=== PATIENT | male | born 1950 | race Caucasian/White ===

== ENCOUNTER 2021-01-11 15:48 | Inpatient (IN) ==
[2021-01-11] MEDS ORDERED: dexAMETHasone**PF** 10 MG/ML VIAL IV ONE (16:20)
--- NOTE | 2021-01-11 16:27 | Emergency Department Note ---
Impression & Plan COVID-19, Syncope and collapse, CHI (closed head injury), Weakness, Hypoxia ED Provider Note INFORMANT: Patient ED PROVIDER(S): Nolan Timmons MD CHIEF COMPLAINT: Syncope, Covid PLAN: Disposition: Admitted Condition: Guarded Outpatient prescription management: none Referral: None MEDICAL DECISION MAKING: Patient presented to emergency room because of syncope and was diagnosed as an outpatient with Covid. His Covid results were not immediately available. Test was repeated and was positive. The patient's chest x-ray was concerning for Covid pneumonia. Patient was given IV Decadron. He was requiring supplemental oxygen. His ECG was normal. His CBC and chemistry panel was unremarkable. The patient was hydrated. He underwent CT imaging of the head and chest and these d id not reveal any acute process other than the viral type pneumonia pattern. Under the circumstances patient will require further management in the hospital. [facility] Patient was evaluated in the ER and admitted. Triage Nursing notes reviewed and agree them. Vital Signs: reviewed and remarkable for hypoxia Differential diagnosis: Covid 19, Infection, dehydration, metabolic abnormality, hypo/hyperglycemia, electrolyte disturbance, anemia, hypoxia, cardiac sources, intracerebral event, toxicologic, neurologic, as well as other pathologies. Diagnostics interpreted by me: ECG: Rate: 73 Rhythm:Normal sinus Pyrites:Normal QRS:Normal ST segements:No elevation or depression Other:No PACs or PVCs Cardiac Monitoring: Cardiac monitoring ordered by me: The patient was placed on continuous cardiac monitoring and observed. It revealed a normal sinus rhythm at 87 beats per minute without ectopy or evidence of dysrhythmia. Imaging studies: Chest x-ray reveals patchy airspace opacities bilaterally. CT PE study negative for pulmonary malaise. Viral type pneumonia pattern present. Head CT: A noncontrast CT scan of the head was performed and was negative for tumor, fracture, intracranial hemorrhage, or other acute pathology. Consultation(s): Reginaldo nicole HPI: The patient is a 70 year old male who presents to the Emergency Room with complaints of weakness. This started over a week ago and is persisting. The patient also notes the following associated symptoms, cough, fatigue, poor appetite, syncope, fevers and chills. The patient has found no relieving factors. Current pain is rated as 3/10. Patient states he was diagnosed with Covid after having a cough develop the first week of the month. He was diagnosed 3 days ago at the [facility]. He has been too weak to get up and eat and drink well. He had a syncopal episode today. He struck his left side of his head and face on the ground. No lacerations. EMS was summoned. The patient walked to EMS and had a second syncopal episode. Upon arrival to [facility] ER he was found to be hypoxic. Pt denies diaphoresis, visual changes, neck pain, chest pain, nausea, vomiting, abdominal pain, back pain, melena, hematochezia, urinary symptoms, numbness, lymphadenopathy, rash, or other complaints. ROS: See above HPI for pertinent positives & negatives. A total of 10 systems reviewed and were otherwise negative. PAST MEDICAL HISTORY:See Below , CAD, hypertension PAST SURGICAL HISTORY:See Below, CABG FAMILY HISTORY:See Below SOCIAL HISTORY:See Below, lives with family HOME MEDICATIONS:See Below ALLERGIES:See Below VITALS:See Below PHYSICAL EXAMINATION: GENERAL: Awake, tired-appearing, in no distress HENT: Normocephalic, small contusion noted on the left side of the head. No lacerations. Oropharynx unremarkable. EYES: Normal conjunctiva. Sclera non-icteric. NECK: Inspection normal. Non-tender. Supple. No nuchal rigidity. FROM. No masses. RESPIRATORY: Clear to auscultation. No wheezes. No rales. Normal respiratory effort. CARDIAC: Normal rate. Normal rhythm. No murmurs. No rubs. Extremities warm and well perfused. Pulses equal. No JVD. GI: Soft, non-distended. No tenderness to palpation. No rebound or guarding. No masses. RECTAL: Deferred. MUSCULOSKELETAL: Atraumatic. Chest examination reveals no tenderness. The back is symmetrical on inspection without obvious abnormality. There is no CVA tenderness to palpation. No joint edema. LOWER EXTREMITIES: Calves are equal size bilaterally and non-tender. No edema. No discoloration. NEURO: Normal sensorium. No sensory or motor deficits noted. SKIN: No rash or jaundice noted. ED COURSE: [Critical Care:] I have personally spent greater than 40 minutes of critical care time in the di rect management of this patient. This includes bedside care, interpretation of diagnostic studies, and testing, discussion with consultants, patient, and other required patient management activities. These minutes are in excess of all separately billable procedures. Nolan Timmons MD Past Med/Surg History Social History (Updated 01/11/21 @ 19:25 by Brenda Gifford MD) Smoking Status: Former smoker Smoking End Date: 10 years ago; Hx Alcohol Use: Yes Hx Substance Use: No Preferred Language: German Communication Ability: Effective Multiple Pressure Riveter Operator Required: No Beliefs That Will Affect Care: None Current Living Situation: Family Current Living Situation Comment: Lives with and son Feels Safe at Home: Yes Assistive Devices: Glasses Assistive Devices Comment: Dentures at home. States he does not wear them very much. Allergies Allergies Allergy/AdvReac Type Severity Reaction Status Date / Time Penicillins Allergy Severe Rash Unverified 01/11/21 16:39 Home Meds Home Medications Medication Instructions Recorded Confirmed amlodipine 10 mg PO QAM 01/11/21 01/11/21 aspirin 81 mg PO DAILY 01/11/21 01/11/21 atorvastatin 80 mg PO QPM 01/11/21 01/11/21 buspirone 10 mg PO BID 01/11/21 01/11/21 fenofibrate 160 mg PO QAM 01/11/21 01/11/21 losartan 25 mg PO QAM 01/11/21 01/11/21 metoprolol tartrate 50 mg PO BID 01/11/21 01/11/21 sertraline 25 mg PO QPM 01/11/21 01/11/21 Results & Data (ED) Vital Signs Vital Signs - 24 hr 01/11/21 15:59 01/11/21 16:11 01/11/21 16:30 Temperature 36.9 C Temperature Source Oral Pulse Rate 73 76 80 Pulse Rate from SpO2 Sensor 74 74 Respiratory Rate 16 20 20 Respiratory Depth Normal Blood Pressure 126/72 126/72 Blood Pressure Mean 90 90 Blood Pressure Position Sitting Pulse Oximetry 88 L 96 Oxygen Delivery Method Room Air Nasal Cannula Oxygen Flow Rate Sepsis Recent Fever Within 48 Hours No Sepsis New/Unexplained Change in Mental Status No Sepsis Action Taken by Nursing No Action Required Oxygen Flow Rate - Titration 3 Pulse Oximetry Post Tiitration 96 01/11/21 16:34 01/11/21 16:35 01/11/21 16:39 Temperature Temperature Source Pulse Rate 75 80 77 Pulse Rate from SpO2 Sensor 77 80 Respiratory Rate 16 24 18 Respiratory Depth Blood Pressure 126/81 Blood Pressure Mean 96 Blood Pressure Position Pulse Oximetry 96 95 97 Oxygen Delivery Method Nasal Cannula Oxygen Flow Rate 3 Sepsis Recent Fever Within 48 Hours Sepsis New/Unexplained Change in Mental Status Sepsis Action Taken by Nursing Oxygen Flow Rate - Titration Pulse Oximetry Post Tiitration 01/11/21 17:00 01/11/21 17:01 01/11/21 17:30 Temperature Temperature Source Pulse Rate 72 80 73 Pulse Rate from SpO2 Sensor 73 80 73 Respiratory Rate 18 17 14 Respiratory Depth Blood Pressure 118/71 Blood Pressure Mean 86 Blood Pressure Position Pulse Oximetry 95 95 94 Oxygen Delivery Method Oxygen Flow Rate Sepsis Recent Fever Within 48 Hours Sepsis New/Unexplained Change in Mental Status Sepsis Action Taken by Nursing Oxygen Flow Rate - Titration Pulse Oximetry Post Tiitration 01/11/21 18:08 01/11/21 18:30 Temperature Temperature Source Pulse Rate 75 Pulse Rate from SpO2 Sensor 75 75 Respiratory Rate 21 17 Respiratory Depth Blood Pressure 116/66 Blood Pressure Mean 82 Blood Pressure Position Pulse Oximetry 96 94 Oxygen Delivery Method Oxygen Flow Rate Sepsis Recent Fever Within 48 Hours Sepsis New/Unexplained Change in Mental Status Sepsis Action Taken by Nursing Oxygen Flow Rate - Titration Pulse Oximetry Post Tiitration Laboratory Data Result diagrams: 01/11/21 16:05 01/11/21 16:05 Lab Results 01/11/21 01/11/21 01/11/21 Range/Units 16:05 16:05 16:05 WBC 5.35 (4.8-10.8) K/uL RBC 4.56 L (4.7-6.1) M/uL Hgb 14.8 (14.0-18.0) g/dL Hct 40.8 L (42-52) % MCV 89.5 (80-100) fL MCH 32.5 (25-34) pg MCHC 36.3 H (32-36) g/dL RDW Std Deviation 41.6 (36.4-46.3) fL RDW Coeff of Bhargav 12.8 (11.5-14.5) % Plt Count 221 (130-400) K/uL MPV 9.8 (7.4-10.4) fL Immature Gran % (Auto) 0.2 % Neut % (Auto) 68.4 % Lymph % (Auto) 21.3 % Robertson % (Auto) 9.7 % Eos % (Auto) 0.2 % Baso % (Auto) 0.2 % Neut # (Auto) 3.66 (1.4-6.5) K/uL Lymph # (Auto) 1.14 L (1.2-3.4) K/uL Robertson # (Auto) 0.52 (0.11-0.59) K/uL Eos # (Auto) 0.01 (0-0.5) K/uL Baso # (Auto) 0.01 (0-0.2) K/uL Immature Gran # (Auto) 0.01 (0.00-0.02) K/uL D-Dimer 990 H* (0-500) ug/L FEU Sodium 136 (136-145) mmol/L Potassium 3.7 (3.5-5.1) mmol/L Chloride 106 (98-107) mmol/L Carbon Dioxide 23 (21-32) mmol/L Anion Gap 7.0 (3-11) BUN 34 H (7-18) mg/dl Creatinine 1.49 H (0.6-1.4) mg/dl Est Cr Clr Drug Dosing 51.3 ml/min Est GFR ( Amer) 53.6 Est GFR (Non-Af Amer) 46.2 BUN/Creatinine Ratio 22.6 H (10-20) Glucose 124 H (70-99) mg/dl Calcium 8.5 (8.5-10.1) mg/dl Magnesium 2.1 (1.8-2.4) mg/dl Total Bilirubin 0.5 (0.2-1) mg/dl AST 68 H (15-37) U/L ALT 68 (12-78) U/L Alkaline Phosphatase 56 (45-117) U/L Troponin I < 0.015 (0-0.045) ng/ml C-Reactive Protein 1.73 H (0-0.29) mg/dl Total Protein 6.6 (6.4-8.2) gm/dl Albumin 2.9 L (3.4-5.0) gm/dl Globulin 3.7 (2.5-4.0) gm/dl Albumin/Globulin Ratio 0.8 L (0.9-2) Procalcitonin (0-0.5) ng/ml TSH 0.347 (0.300-4.500) uIu/ml COVID-19 Eval Order SARS-CoV-2 (PCR) (Negative) Influenza Type A (PCR) (Neg) Influenza Type B (PCR) (Neg) RSV (RT-PCR) (Neg) 01/11/21 01/11/21 01/11/21 Range/Units 16:05 16:35 16:35 WBC (4.8-10.8) K/uL RBC (4.7-6.1) M/uL Hgb (14.0-18.0) g/dL Hct (42-52) % MCV (80-100) fL MCH (25-34) pg MCHC (32-36) g/dL RDW Std Deviation (36.4-46.3) fL RDW Coeff of Bhargav (11.5-14.5) % Plt Count (130-400) K/uL MPV (7.4-10.4) fL Immature Gran % (Auto) % Neut % (Auto) % Lymph % (Auto) % Robertson % (Auto) % Eos % (Auto) % Baso % (Auto) % Neut # (Auto) (1.4-6.5) K/uL Lymph # (Auto) (1.2-3.4) K/uL Robertson # (Auto) (0.11-0.59) K/uL Eos # (Auto) (0-0.5) K/uL Baso # (Auto) (0-0.2) K/uL Immature Gran # (Auto) (0.00-0.02) K/uL D-Dimer (0-500) ug/L FEU Sodium (136-145) mmol/L Potassium (3.5-5.1) mmol/L Chloride (98-107) mmol/L Carbon Dioxide (21-32) mmol/L Anion Gap (3-11) BUN (7-18) mg/dl Creatinine (0.6-1.4) mg/dl Est Cr Clr Drug Dosing ml/min Est GFR ( Amer) Est GFR (Non-Af Amer) BUN/Creatinine Ratio (10-20) Glucose (70-99) mg/dl Calcium (8.5-10.1) mg/dl Magnesium (1.8-2.4) mg/dl Total Bilirubin (0.2-1) mg/dl AST (15-37) U/L ALT (12-78) U/L Alkaline Phosphatase (45-117) U/L Troponin I (0-0.045) ng/ml C-Reactive Protein (0-0.29) mg/dl Total Protein (6.4-8.2) gm/dl Albumin (3.4-5.0) gm/dl Globulin (2.5-4.0) gm/dl Albumin/Globulin Ratio (0.9-2) Procalcitonin < 0.05 (0-0.5) ng/ml TSH (0.300-4.500) uIu/ml COVID-19 Eval Order [facility]FluRsv at [facility] SARS-CoV-2 (PCR) POSITIVE A* (Negative) Influenza Type A (PCR) Negative (Neg) Influenza Type B (PCR) Negative (Neg) RSV (RT-PCR) Negative (Neg) Administered Medications Atorvastatin Calcium (Atorvastatin 40 Mg Tab) 80 mg PO QPM QUINTIN Stop: 02/10/21 20:59 Last Admin: 01/11/21 21:58 Dose: 80 mg Documented by: [id number] Buspirone HCl (Buspirone 5 Mg Tab) 10 mg PO BID QUINTIN Stop: 02/10/21 20:59 Last Admin: 01/11/21 21:58 Dose: 10 mg Documented by: [id number] Heparin Sodium (Porcine) (Heparin Sod 5,000 Unit/0.5 Ml Vial) 5,000 units SQ Q8 QUINTIN Stop: 02/10/21 21:59 Last Admin: 01/11/21 22:04 Dose: 5,000 units Documented by: [id number] Metoprolol Tartrate (Metoprolol Tartrate 50 Mg Tab) 50 mg PO BID QUINTIN Stop: 02/10/21 20:59 Last Admin: 01/11/21 21:59 Dose: 50 mg Documented by: [id number] Sertraline HCl (Sertraline Hcl 50 Mg Tablet) 25 mg PO QPM QUINTIN Stop: 02/10/21 20:59 Last Admin: 01/11/21 21:57 Dose: 25 mg Documented by: [id number] Discontinued Medications Dexamethasone Sodium Phosphate (DexamethasonePf 10 Mg/Ml Vial) 6 mg IV NOW ONE Stop: 01/11/21 16:21 Last Admin: 01/11/21 16:40 Dose: 6 mg Documented by: [id number] Sodium Chloride (Nss) 500 mls @ 999 mls/hr IV .Q31M QUINTIN Stop: 01/11/21 17:00 Last Infusion: 01/11/21 17:27 Dose: 0 mls/hr Documented by: [id number] Admin: 01/11/21 16:26 Dose: 999 mls/hr Documented by: [id number] Sodium Chloride (Nss 1000ml) 1,000 mls @ 125 mls/hr IV .Q8H QUINTIN Stop: 01/12/21 00:29 Last Infusion: 01/11/21 23:33 Dose: 0 mls/hr Documented by: [id number] Admin: 01/11/21 16:40 Dose: 125 mls/hr Documented by: [id number] Remdesivir 200 mg/ Sodium (Chloride) 250 mls @ 125 mls/hr IV NOW STA; Protocol Stop: 01/11/21 23:00 Last Admin: 01/11/21 21:59 Dose: 125 mls/hr Documented by: [id number] Ioversol (Optiray 320 150ml) 113 ml IV ONCE ONE Stop: 01/11/21 18:01 Last Admin: 01/11/21 18:00 Dose: 113 ml Documented by: [id number] Ioversol (Optiray 350 500ml) 113 ml IV ONCE ONE Stop: 01/11/21 18:05 Last Admin: 01/11/21 18:04 Dose: 113 ml Documented by: [id number] Sodium Chloride (Sodium Chloride 0.9% 10ml Flush) 30 ml IV Q24H [facility] Stop: 01/11/21 23:01 Last Admin: 01/12/21 00:20 Dose: 30 ml Documented by: [id number] Imaging Data Radiologist's Impression: Chest X-Ray 01/11/21 16:20 XR chest 1V portable HISTORY: 70 years-old Male weakness +covid acute weakness. COVID Positive. COMPARISON: None TECHNIQUE: Portable AP view of the chest FINDINGS: Cardiac silhouette is enlarged. Prior median sternotomy and CABG. Pulmonary vas cular congestion. Bilateral reticular opacities with hazy ill-defined peripheral predominant airspace densities. No pneumothorax or pleural effusion. Mild right hemidiaphragmatic elevation. Degenerative changes of the shoulders and spine. IMPRESSION: 1. Cardiomegaly with pulmonary vascular congestion. 2. Hazy bilateral pulmonary opacities suggestive of viral pneumonia. ACT 112: Negative or not required by law. The above report was generated using voice recognition software. It may contain grammatical, syntax or spelling errors. Electronically signed by: Chris Garcia M.D. 01/11/2021 5:[address] 01/11/21 16:20 CT head/brain wo con CLINICAL HISTORY: 70 years-old Male with fall, CHI, +covid. Acute head injury status post fall TECHNIQUE: Multiple axial CT images of the head were obtained without contrast. A dose lowering technique was utilized adhering to the principles of ALARA. COMPARISON: CTA chest of same day FINDINGS: [id number] Analyst localizer images demonstrate pulmonary opacities suspicious for pneumonia. No acute intracranial hemorrhage, midline shift, intracranial mass, hydrocephalus, territorial ischemia or abnormal extra-axial collection. It age- related involutional changes. White matter hypodensities suggestive of chronic microvascular ischemic disease. Cerebral vascular calcifications. The calvarium is intact. Mild mucosal thickening of the ethmoid air cells. Unremarkable soft tissues and orbits. IMPRESSION: No acute intracranial abnormality. ACT 112: Negative or not required by law. The above report was generated using voice recognition software. It may contain grammatical, syntax or spelling errors. Electronically signed by: Chris Garcia M.D. 01/11/2021 6:10 PM Chest CTA 01/11/21 16:22 CT angio chest PE protocol CT DOSE: 1431.41 mGy.cm HISTORY: 70 years-old Male with SOB, hypoxia, +covid. Acute shortness of breath and hypoxia. Acute chest trauma status post fall TECHNIQUE: Multiple CTA images of the chest were obtained after the intravenous administration of 113 ml Optiray. Coronal and sagittal MIPS were obtained from the axial data set and were submitted for review. All measurements were obtained according to NASCET criteria. A dose lowering technique was utilized adhering to the principles of ALARA. COMPARISON: Chest radiograph of same day FINDINGS: CTA: Heart is upper limits of normal in size. Prior median sternotomy and CABG with extensive [place] coronary artery calcifications. Mild saccular outpouching of the thoracic aortic isthmus measuring 11 mm suggestive of a ductus diverticulum. No dissection. Unremarkable pulmonary artery. No pulmonary emboli. CT CHEST: 12 mm hypodense left thyroid nodule. Mildly enlarged mediastinal and hilar lymph nodes measure up to 10-11 mm. No pneumothorax. Moderate emphysema. Subpleural multilobar distribution of groundglass and linear consolidative opacities. Bronchial wall thickening suggestive of bronchitis. No overt pulmonary edema or suspicious pulmonary nodule. Central airways are patent. No pneumoperitoneum. Hepatic steatosis. Mild wall thickening of the distal esophagus. Unremarkable soft tissues. There is no acute fracture. IMPRESSION: 1. No pulmonary emboli. 2. Peripheral predominate groundglass and consolidative opacities within all lobes bilaterally compatible with viral pneumonia. 3. Mild likely reactive mediastinal and hilar adenopathy. 4. No pleural effusion. 5. Emphysema. 6. Hepatic steatosis. ACT 112: Negative or not required by law. The above report was generated using voice recognition software. It may contain grammatical, syntax or spelling errors. Electronically signed by: Chris Garcia M.D. 01/11/2021 6:21 PM Discharge Plan Visit Data Chief Complaint: Weakness Stated Complaint: WEAKNESS, SYNCOPE, COVID + ED Provider: Nolan Timmons Discharge Problem: COVID-19, Syncope and collapse, CHI (closed head injury), Weakness, Hypoxia Patient Disposition: Admitted As Inpatient Discharge Instructions Interventions: ED Discharge Assessment Last Done: 01/11/21 19:53
[2021-01-11] MEDS ORDERED: SODIUM CHLORIDE 0.9% 500 ML IV SCH (16:30)
[2021-01-11] MEDS ORDERED: SODIUM CHLORIDE 0.9% 1000ML 1,000 ML IV SCH (16:30)
[2021-01-11 16:43] LABS: Basophils # (auto) 0.01 K/uL (0-0.2); Basophils % (auto) 0.2 %; Eosinophils # (auto) 0.01 K/uL (0-0.5); Eosinophils % (auto) 0.2 %; Hematocrit (blood only) 40.8 % (42-52); Hemoglobin 14.8 g/dL (14.0-18.0); Immature Granulocytes # (auto) 0.01 K/uL (0.00-0.02); Immature Granulocytes % (auto) 0.2 %; Lymphocytes # (auto) 1.14 K/uL (1.2-3.4); Lymphocytes % (auto) 21.3 %; Mean Corpuscular Hemoglobin 32.5 pg (25-34); Mean Corpuscular Hgb Conc 36.3 g/dL (32-36); Mean Corpuscular Volume 89.5 fL (80-100); Mean Platelet Volume 9.8 fL (7.4-10.4); Monocytes # (auto) 0.52 K/uL (0.11-0.59); Monocytes % (auto) 9.7 %; Neutrophils # (auto) 3.66 K/uL (1.4-6.5); Neutrophils % (auto) 68.4 %; Platelet Count 221 K/uL (130-400); RDW Coefficient of Variation 12.8 % (11.5-14.5); RDW Standard Deviation 41.6 fL (36.4-46.3); Red Blood Count 4.56 M/uL (4.7-6.1); White Blood Count 5.35 K/uL (4.8-10.8)
[2021-01-11 16:49] LABS: Alanine Aminotransferase 68 U/L (12-78); Albumin Level 2.9 gm/dl (3.4-5.0); Aspartate Aminotransferase 68 U/L (15-37); BUN Creatinine Ratio 22.6 (10-20); Blood Urea Nitrogen 34 mg/dl (7-18); C Reactive Protein 1.73 mg/dl (0-0.29); Calcium 8.5 mg/dl (8.5-10.1); Carbon Dioxide 23 mmol/L (21-32); Chloride 106 mmol/L (98-107); Creatinine Clr Calc Pharmacy 51.3 ml/min; Est GFR (African American) 53.6; Est GFR (Non-African American) 46.2; Glucose 124 mg/dl (70-99); Magnesium 2.1 mg/dl (1.8-2.4); Potassium 3.7 mmol/L (3.5-5.1); Sodium 136 mmol/L (136-145)
[2021-01-11 16:59] LABS: D Dimer 990 ug/L FEU (0-500)
[2021-01-11 17:00] LABS: Albumin Globulin Ratio 0.8 (0.9-2); Alkaline Phosphatase 56 U/L (45-117); Bilirubin,Total 0.5 mg/dl (0.2-1); Globulin 3.7 gm/dl (2.5-4.0); Thyroid Stimulating Hormone 0.347 uIu/ml (0.300-4.500); Total Protein 6.6 gm/dl (6.4-8.2); Troponin I < 0.015 ng/ml (0-0.045)
--- NOTE | 2021-01-11 17:22 | XRay Report ---
XR chest 1V portable HISTORY: 70 years-old Male weakness +covid acute weakness. COVID Positive. COMPARISON: None TECHNIQUE: Portable AP view of the chest FINDINGS: Cardiac silhouette is enlarged. Prior median sternotomy and CABG. Pulmonary vascular congestion. Bila teral reticular opacities with hazy ill-defined peripheral predominant airspace densities. No pneumot horax or pleural effusion. Mild right hemidiaphragmatic elevation. Degenerative changes of the should ers and spine. IMPRESSION: 1. Cardiomegaly with pulmonary vascular congestion. 2. Hazy bilateral pulmonary opacities suggestive of viral pneumonia. ACT 112: Negative or not required by law. The above report was generated using voice recognition software. It may contain grammatical, syntax o r spelling errors. Electronically signed by: Chris Garcia M.D. 01/11/2021 5:21 PM
[2021-01-11 17:26] LABS: Influenza A virus by PCR Negative (Neg); Influenza B virus by PCR Negative (Neg); RSV by PCR Negative (Neg)
[2021-01-11 17:32] LABS: SARS CoV2 RNA(COVID-19) InHosp POSITIVE (Negative)
[2021-01-11] MEDS ORDERED: OPTIRAY 320 150ml IV ONE (18:00)
[2021-01-11] MEDS ORDERED: OPTIRAY 350 500ml IV ONE (18:04)
--- NOTE | 2021-01-11 18:12 | CT Scan Report ---
CT head/brain wo con CLINICAL HISTORY: 70 years-old Male with fall, CHI, +covid. Acute head injury status post fall TECHNIQUE: Multiple axial CT images of the head were obtained without contrast. A dose lowering tech nique was utilized adhering to the principles of ALARA. COMPARISON: CTA chest of same day FINDINGS: Flue Tile Press Operator localizer images demonstrate pulmonary opacities suspicious for pneumonia. No acute intracrania l hemorrhage, midline shift, intracranial mass, hydrocephalus, territorial ischemia or abnormal extra -axial collection. It age-related involutional changes. White matter hypodensities suggestive of doorshaker ana microvascular ischemic disease. Cerebral vascular calcifications. The calvarium is intact. Mild mucosal thickening of the ethmoid air cells. Unremarkable soft tissues and orbits. IMPRESSION: No acute intracranial abnormality. ACT 112: Negative or not required by law. The above report was generated using voice recognition software. It may contain grammatical, syntax o r spelling errors. Electronically signed by: Chris Garcia M.D. 01/11/2021 6:10 PM
--- NOTE | 2021-01-11 18:22 | CT Scan Report ---
CT angio chest PE protocol CT DOSE: 1431.41 mGy.cm HISTORY: 70 years-old Male with SOB, hypoxia, +covid. Acute shortness of breath and hypoxia. Acute chest trauma status post fall TECHNIQUE: Multiple CTA images of the chest were obtained after the intravenous administration of 113 ml Optiray. Coronal and sagittal MIPS were obtained from the axial data set and were submitted for review. All measurements were obtained according to NASCET criteria. A dose lowering technique was u tilized adhering to the principles of ALARA. COMPARISON: Chest radiograph of same day FINDINGS: CTA: Heart is upper limits of normal in size. Prior median sternotomy and CABG with extensive [place] coron trang artery calcifications. Mild saccular outpouching of the thoracic aortic isthmus measuring 11 mm s uggestive of a ductus diverticulum. No dissection. Unremarkable pulmonary artery. No pulmonary emboli . CT CHEST: 12 mm hypodense left thyroid nodule. Mildly enlarged mediastinal and hilar lymph nodes measure up to 10-11 mm. No pneumothorax. Moderate emphysema. Subpleural multilobar distribution of groundglass and linear consolidative opacities. Bronchial wall thickening suggestive of bronchitis. No overt pulmonar y edema or suspicious pulmonary nodule. Central airways are patent. No pneumoperitoneum. Hepatic steatosis. Mild wall thickening of the distal esophagus. Unremarkable so ft tissues. There is no acute fracture. IMPRESSION: 1. No pulmonary emboli. 2. Peripheral predominate groundglass and consolidative opacities within all lobes bilaterally compat ible with viral pneumonia. 3. Mild likely reactive mediastinal and hilar adenopathy. 4. No pleural effusion. 5. Emphysema. 6. Hepatic steatosis. ACT 112: Negative or not required by law. The above report was generated using voice recognition software. It may contain grammatical, syntax o r spelling errors. Electronically signed by: Chris Garcia M.D. 01/11/2021 6:21 PM
--- NOTE | 2021-01-11 18:50 | History & Physical Report ---
Date of Service January 11, 2021 Assessment & Plan (1) COVID-19: (2) Syncope and collapse: (3) Acute respiratory failure with hypoxia: Acute hypoxic respiratory failure secondary to COVID-19 pneumonia Syncopal episodes is likely related to this. CT PE was negative for PE but has bilateral opacities Continue dexamethasone Remdesivir therapy Monitor LFTs Monitor inflammatory markers Incentive spirometry and flutter Continue oxygen supplementation and will wean as tolerated Fall precautions Hold antihypertensive for now We will continue current NSS and discontinue affect current bag (4) History of coronary artery bypass graft: CAD s/p CABG x2 Continue aspirin, fenofibrate and atorvastatin (5) Hypertension: Controlled for now. Hold amlodipine and losartan for now (6) CKD (chronic kidney disease) stage 3, GFR 30-59 ml/min: Baseline creatinine is 1.5 Creatinine is 1.49 Monitor Avoid nephrotoxins (7) Prediabetes: Hemoglobin A1c was 6.4 in September 2020. Monitor Accu-Cheks with dexamethasone therapy (8) Anxiety: Continue home buspirone and sertraline (9) DVT prophylaxis: Heparin subcu for DVT prophylaxis History of Present Illness 70-year-old man with history of hypertension, CAD status post CABG in 2009, CKD 3, partial bowel resection for obstruction in 2007 who presents to the ER complaining of cough for the past 2 weeks and 2 syncopal episodes today. Patient reported that he started having symptoms around Easter, 2 weeks ago with cough mostly dry. Associated with loss of voice, anorexia and generalized weakness that has been progressive Reported dizziness especially on standing and some mild headache. This has been progressing and patient had Covid test done 3 days ago by PCP which was positive. Patient reported that he likely got the infection from the son. Patient reported that today, he got up to go use the bathroom and fell with brief loss of consciousness hitting his head on the tile floor. He was not able to get up for some time and his son had to come help him up. His oxygen saturation measured at home was 82 to 83% and his [id number] advised him to go to the hospital. He reported that when EMS arrived he tried to walk to the EMS and had another syncopal episode. Other review of system as detailed below. Patient has history of partial bowel resection 2007, CABG in 2009 Other past medical history includes hypertension, CKD 3 for which he follows nephrology Quit smoking 10-11yrs ago. Smoked 2-3ppd for 20ys Quit alcohol same time No illicit drug use On presentation to the hospital, he was noted to be hypoxic on room air. CT PE was negative for PE but does show groundglass opacities bilaterally CT head did not show any acute intracranial abnormalities right hand gas Primary Care Provider: Roque Quinteros MD Allergies Allergy/AdvReac Type Severity Reaction Status Date / Time Penicillins Allergy Severe Rash Unverified 01/11/21 16:39 Home Medications Medication Instructions Recorded Confirmed Type amlodipine 10 mg PO QAM 01/11/21 01/11/21 History aspirin 81 mg PO DAILY 01/11/21 01/11/21 History atorvastatin 80 mg PO QPM 01/11/21 01/11/21 History buspirone 10 mg PO BID 01/11/21 01/11/21 History fenofibrate 160 mg PO QAM 01/11/21 01/11/21 History losartan 25 mg PO QAM 01/11/21 01/11/21 History metoprolol tartrate 50 mg PO BID 01/11/21 01/11/21 History sertraline 25 mg PO QPM 01/11/21 01/11/21 History Past Med/Surg History Social History (Updated 01/11/21 @ 19:25 by Brenda iGfford MD) Smoking Status: Former smoker Feels Safe at Home: Yes Review of Systems Constitutional: + chills, + body aches and + fatigue; no fever Eyes: Blurry vision Ear, Nose, Mouth, Throat: no nasal congestion and no sore throat Respiratory: + cough (mostly dry); no dyspnea and no dyspnea on exertion Cardiovascular: + lightheadedness and + syncope; no chest pain, no dyspnea, no dyspnea on exertion and no edema Gastrointestinal: + diarrhea/loose stools; no abdominal pain, no nausea, no vomiting and no constipation Genitourinary: no dysuria, no difficulty urinating and no urinary frequency Musculoskeletal: + myalgia Integumentary: no problem reported Neurologic: + dizziness; no tremor(s), no headache(s) and no confusion Psychiatric: no depression and no anxiety Physical Exam Constitutional: + well hydrated; no acute distress Eyes: PERRL, conjunctivae normal, anicteric sclerae ENMT: external ear and nose normal, oropharynx normal Respiratory: normal respiratory effort; no respiratory distress mild crackles posteriorly (R>L) On 3 L nasal cannula Cardiovascular: Rate/Rhythm: regular rate and regular rhythm S1-S2 Gastrointestinal (Abdomen): normal bowel sounds, soft, nontender, no hepatosplenomegaly Musculoskeletal: no cyanosis or clubbing, extremities motor strength 5/5 Neurologic: PERRL, EOMI, accommodation nl, no face palsy, no dysarthria No tenderness on palpation left left part of the face where patient fell Psychiatric: A+Ox3, euthymic affect Results & Data Results & Data ([facility]) Vital Signs (Past 12 Hours) Vital Signs Temp Pulse Resp BP Pulse Ox 01/11/21 18:30 75 17 116/66 94 01/11/21 18:08 21 96 01/11/21 17:30 73 14 94 01/11/21 17:01 80 17 95 01/11/21 17:00 72 18 118/71 95 01/11/21 16:39 77 18 97 01/11/21 16:35 80 24 95 01/11/21 16:34 75 16 126/81 96 01/11/21 16:30 80 20 96 01/11/21 16:11 36.9 C 76 20 126/72 88 L 01/11/21 15:59 73 16 126/72 Laboratory Results Laboratory Results - last 24 hr 01/11/21 01/11/21 01/11/21 16:05 16:05 16:05 WBC 5.35 RBC 4.56 L Hgb 14.8 Hct 40.8 L MCV 89.5 MCH 32.5 MCHC 36.3 H RDW Std Deviation 41.6 RDW Coeff of Bhargav 12.8 Plt Count 221 MPV 9.8 Immature Gran % (Auto) 0.2 Neut % (Auto) 68.4 Lymph % (Auto) 21.3 [place] % (Auto) 9.7 Eos % (Auto) 0.2 Baso % (Auto) 0.2 Neut # (Auto) 3.66 Lymph # (Auto) 1.14 L [place] # (Auto) 0.52 Eos # (Auto) 0.01 Baso # (Auto) 0.01 Immature Gran # (Auto) 0.01 D-Dimer 990 H* Sodium 136 Potassium 3.7 Chloride 106 Carbon Dioxide 23 Anion Gap 7.0 BUN 34 H Creatinine 1.49 H Est Cr Clr Drug Dosing 51.3 Est GFR ( Amer) 53.6 Est GFR (Non-Af Amer) 46.2 BUN/Creatinine Ratio 22.6 H Glucose 124 H Calcium 8.5 Magnesium 2.1 Total Bilirubin 0.5 AST 68 H ALT 68 Alkaline Phosphatase 56 Troponin I < 0.015 C-Reactive Protein 1.73 H Total Protein 6.6 Albumin 2.9 L Globulin 3.7 Albumin/Globulin Ratio 0.8 L Procalcitonin TSH 0.347 COVID-19 Eval Order SARS-CoV-2 (PCR) Influenza Type A (PCR) Influenza Type B (PCR) RSV (RT-PCR) 01/11/21 01/11/21 01/11/21 16:05 16:35 16:35 WBC RBC Hgb Hct MCV MCH MCHC RDW Std Deviation RDW Coeff of Bhargav Plt Count MPV Immature Gran % (Auto) Neut % (Auto) Lymph % (Auto) [place] % (Auto) Eos % (Auto) Baso % (Auto) Neut # (Auto) Lymph # (Auto) [place] # (Auto) Eos # (Auto) Baso # (Auto) Immature Gran # (Auto) D-Dimer Sodium Potassium Chloride Carbon Dioxide Anion Gap BUN Creatinine Est Cr Clr Drug Dosing Est GFR ( Amer) Est GFR (Non-Af Amer) BUN/Creatinine Ratio Glucose Calcium Magnesium Total Bilirubin AST ALT Alkaline Phosphatase Troponin I C-Reactive Protein Total Protein Albumin Globulin Albumin/Globulin Ratio Procalcitonin < 0.05 TSH COVID-19 Eval Order CovFluRsv at [facility] SARS-CoV-2 (PCR) POSITIVE A* Influenza Type A (PCR) Negative Influenza Type B (PCR) Negative RSV (RT-PCR) Negative
[2021-01-11] MEDS ORDERED: ACETAMINOPHEN 325 MG TAB PO PRN (20:25)
[2021-01-11] MEDS ORDERED: REMDESIVIR 200 MG in SODIUM CHLORIDE 0.9% 210 ML IV STA (21:01)
[2021-01-11] MEDS: SERTRALINE HCL 50 MG TABLET PO SCH (21:57)
[2021-01-11] MEDS: busPIRone 5 MG TAB PO SCH (21:58)
[2021-01-11] MEDS: ATORVASTATIN 40 MG TAB PO SCH (21:58)
[2021-01-11] MEDS: METOPROLOL TARTRATE 50 MG TAB PO SCH (21:59)
[2021-01-11] MEDS: HEPARIN SOD 5,000 UNIT/0.5 ML VIAL SQ SCH (22:04)
[2021-01-11] MEDS ORDERED: SODIUM CHLORIDE 0.9% 10ML FLUSH IV SCH (23:00)
[2021-01-12] MEDS: FENOFIBRATE: ORDER AWAITING ACTION SCH ×4 (00:39→23:35)
[2021-01-12] MEDS: HEPARIN SOD 5,000 UNIT/0.5 ML VIAL SQ SCH ×3 (05:56→21:15)
[2021-01-12] MEDS: busPIRone 5 MG TAB PO SCH ×2 (08:24→21:13)
[2021-01-12] MEDS: METOPROLOL TARTRATE 50 MG TAB PO SCH ×2 (08:24→21:13)
[2021-01-12] MEDS: ASPIRIN 81 MG ECTAB PO SCH (08:24)
[2021-01-12] MEDS: dexAMETHasone 6 MG in SYRINGE 0 ML IV SCH (08:26)
[2021-01-12 08:30] LABS: Albumin Level 2.7 gm/dl (3.4-5.0); BUN Creatinine Ratio 31.8 (10-20); C Reactive Protein 1.52 mg/dl (0-0.29); Calcium 8.5 mg/dl (8.5-10.1); Creatinine Clr Calc Pharmacy 57.9 ml/min; Est GFR (African American) 62.6; Magnesium 2.3 mg/dl (1.8-2.4); Potassium 3.7 mmol/L (3.5-5.1)
[2021-01-12 08:33] LABS: Albumin Globulin Ratio 0.7 (0.9-2); Bilirubin,Total 0.4 mg/dl (0.2-1); Globulin 3.8 gm/dl (2.5-4.0); Phosphorus 3.5 mg/dl (2.5-4.9); Total Protein 6.5 gm/dl (6.4-8.2)
--- NOTE | 2021-01-12 11:55 | Hospitalist Progress Note ---
Date of Service January 12, 2021 Assessment & Plan (1) COVID-19: (2) Syncope and collapse: (3) Acute respiratory failure with hypoxia: Acute hypoxic respiratory failure secondary to COVID-19 pneumonia Syncopal episodes is likely related to this. CT PE was negative for PE but has bilateral opacities Continue dexamethasone Remdesivir therapy Monitor LFTs Monitor inflammatory markers Incentive spirometry and flutter Continue oxygen supplementation and will wean as tolerated Clinically a lot better today-we will continue current treatment Fall precautions Hold antihypertensive for now We will continue current NSS and discontinue affect current bag Advised to take extreme precaution to avoid falls and ask for help (4) History of coronary artery bypass graft: CAD s/p CABG x2 Continue aspirin, fenofibrate and atorvastatin Denies any cardiac symptoms (5) Hypertension: Controlled for now. Hold amlodipine and losartan for now We will restart blood pressure medications may be from tomorrow (6) CKD (chronic kidney disease) stage 3, GFR 30-59 ml/min: Baseline creatinine is 1.5 Creatinine is 1.49 Avoid nephrotoxins Creatinine has been normalized Was advised to drink more fluid (7) Prediabetes: Hemoglobin A1c was 6.4 in September 2020. Monitor Accu-Cheks with dexamethasone therapy (8) Anxiety: Continue home buspirone and sertraline (9) DVT prophylaxis: Heparin subcu for DVT prophylaxis Admission and Anticipated Discharge Date Admission Date: January 11, 2021 Subjective 01/12/2021 The patient was seen and examined in medical telemetry and Covid room He has minimal cough otherwise breathing has been improving He denies any more dizziness Review of Systems Review of Systems: All systems reviewed and are unremarkable except as noted below Respiratory: + cough and + dyspnea Gastrointestinal: no abdominal pain and no nausea Physical Exam Physical Exam: Lying in bed with minimal shortness of breath at rest Constitutional: + ill appearing and average body habitus Eyes: PERRL, conjunctivae normal, anicteric sclerae ENMT: external ear and nose normal, oropharynx normal Neck: trachea midline, no thyromegaly Respiratory: + respiratory distress (Mild to moderate respiratory distress at rest); no retractions Auscultation: + diminished lung sounds and + crackles (Bibasilar crackles) Cardiovascular: Rate/Rhythm: regular rate and regular rhythm Heart Sounds: no murmur Extremities: no edema Gastrointestinal (Abdomen): Inspection/Auscultation: normal bowel sounds; abdomen not distended Percussion/Palpation: abdomen soft; abdomen nontender Musculoskeletal: No acute arthritis in any joint Neurologic: Alert, awake and oriented x3. Generally weak but no focal sensory and motor deficit appreciated Psychiatric: A+Ox3, euthymic affect Lymphatic: no cervical or axillary lymphadenopathy Results & Data Results & Data ([facility]) Vital Signs (Past 12 Hours) Vital Signs Temp Pulse Pulse Resp BP Pulse Ox 01/12/21 11:17 37.1 C 77 16 114/77 91 01/12/21 10:21 79 01/12/21 07:38 36.9 C 78 20 102/68 91 01/12/21 03:51 36.6 C 77 16 115/67 92 01/12/21 00:00 91 Laboratory Results Short CBC 01/11/21 Range/Units 16:05 WBC 5.35 (4.8-10.8) K/uL Hgb 14.8 (14.0-18.0) g/dL Hct 40.8 L (42-52) % Plt Count 221 (130-400) K/uL BMP 01/11/21 01/12/21 16:05 07:30 Sodium 136 137 Potassium 3.7 3.7 Chloride 106 109 H Carbon Dioxide 23 21 BUN 34 H 42 H Creatinine 1.49 H 1.31 Glucose 124 H 153 H Calcium 8.5 8.5 Cardiac Enzymes 01/11/21 Range/Units 16:05 Troponin I < 0.015 (0-0.045) ng/ml Liver Function 01/11/21 01/12/21 Range/Units 16:05 07:30 Total Bilirubin 0.5 0.4 (0.2-1) mg/dl AST 68 H 58 H (15-37) U/L ALT 68 69 (12-78) U/L Alkaline Phosphatase 56 56 (45-117) U/L Albumin 2.9 L 2.7 L (3.4-5.0) gm/dl Medications Administered Current Inpatient Medications Acetaminophen (Acetaminophen 325 Mg Tab) 650 mg PO Q6H PRN PRN Reason: fever or pain Stop: 02/10/21 20:24 Aspirin (Aspirin 81 Mg Ectab) 81 mg PO DAILY [facility] Stop: 02/11/21 08:59 Last Admin: 01/12/21 08:24 Dose: 81 mg Documented by: Atorvastatin Calcium (Atorvastatin 40 Mg Tab) 80 mg PO QPM [facility] Stop: 02/10/21 20:59 Last Admin: 01/11/21 21:58 Dose: 80 mg Documented by: Buspirone HCl (Buspirone 5 Mg Tab) 10 mg PO BID [facility] Stop: 02/10/21 20:59 Last Admin: 01/12/21 08:24 Dose: 10 mg Documented by: Guaifenesin (Guaifenesin Sugar Free 100 Mg/5 Ml Udc) 100 mg PO Q6H PRN PRN Reason: Cough Stop: 02/10/21 20:24 Heparin Sodium (Porcine) (Heparin Sod 5,000 Unit/0.5 Ml Vial) 5,000 units SQ Q8 [facility] Stop: 02/10/21 21:59 Last Admin: 01/12/21 05:56 Dose: 5,000 units Documented by: Dexamethasone 6 mg/ Syringe 1.5 mls @ 1 mls/min IV DAILY [facility] Stop: 01/22/21 08:59 Last Admin: 01/12/21 08:26 Dose: 1 mls/min Documented by: Remdesivir 100 mg/ Sodium (Chloride) 250 mls @ 250 mls/hr IV Q24H [facility]; Protocol Stop: 01/15/21 20:59 Metoprolol Tartrate (Metoprolol Tartrate 50 Mg Tab) 50 mg PO BID [facility] Stop: 02/10/21 20:59 Last Admin: 01/12/21 08:24 Dose: 50 mg Documented by: Miscellaneous (Fenofibrate: Order Awaiting Action) 1 ea N/A QS [facility] Stop: 02/11/21 00:00 Last Admin: 01/12/21 08:24 Dose: Not Given Documented by: Sertraline HCl (Sertraline Hcl 50 Mg Tablet) 25 mg PO QPM [facility] Stop: 02/10/21 20:59 Last Admin: 01/11/21 21:57 Dose: 25 mg Documented by: Sodium Chloride (Sodium Chloride 0.9% 10ml Flush) 30 ml IV Q24H [facility] Stop: 01/16/21 21:01
--- NOTE | 2021-01-12 13:10 | Electrocardiogram Report ---
Test Reason : Blood Pressure : / mmHG Vent. Rate : 073 BPM Atrial Rate : 073 BPM P-R Int : 200 ms QRS Dur : 088 ms QT Int : 408 ms P-R-T Axes : 068 053 077 degrees QTc Int : 449 ms Poor data quality, interpretation may be adversely affected Normal sinus rhythm Normal ECG No previous ECGs available Confirmed by Yong Mcnally ([id number]) on 01/12/2021 1:09:58 PM Referred By: REFERRED SELF Confirmed By:Nick Mcnally
[2021-01-12] MEDS: guaiFENesin SUGAR FREE 100 MG/5 ML UDC PO PRN (16:04)
[2021-01-12 16:15] LABS: Appearance Urine Clear (Clear); Bacteria Urine Automated Negative (Negative); Bilirubin Urine Negative (Negative); Blood Urine Negative (Negative); Color Urine Dark Yellow; Glucose Urine UA Negative (Negative); Ketones Urine Negative (Negative); Leukocyte Esterase Urine Negative (Negative); Nitrite Urine Negative (Negative); Protein Urine 1+ (Negative); Urobilinogen Urine Negative (Negative); pH Urine 5.5 (4.5-7.5)
[2021-01-12] MEDS ORDERED: SODIUM CHLORIDE 0.9% 10ML FLUSH IV SCH (20:00)
[2021-01-12] MEDS: REMDESIVIR 100 MG in SODIUM CHLORIDE 0.9% 230 ML IV SCH (20:15)
[2021-01-12] MEDS: SERTRALINE HCL 50 MG TABLET PO SCH (21:12)
[2021-01-12] MEDS: ATORVASTATIN 40 MG TAB PO SCH (21:13)
[2021-01-12] MEDS: SODIUM CHLORIDE 0.9% 10ML FLUSH IV SCH (21:44)
[2021-01-13] MEDS: HEPARIN SOD 5,000 UNIT/0.5 ML VIAL SQ SCH ×3 (06:09→21:27)
[2021-01-13 07:11] LABS: Creatinine Clr Calc Pharmacy 56.7 ml/min; Est GFR (African American) 60.9; Est GFR (Non-African American) 52.6
[2021-01-13] MEDS: METOPROLOL TARTRATE 50 MG TAB PO SCH ×2 (09:04→21:27)
[2021-01-13] MEDS: dexAMETHasone 6 MG in SYRINGE 0 ML IV SCH (09:04)
[2021-01-13] MEDS: ASPIRIN 81 MG ECTAB PO SCH (09:05)
[2021-01-13] MEDS: FENOFIBRATE: ORDER AWAITING ACTION SCH ×3 (09:05→23:09)
[2021-01-13] MEDS: busPIRone 5 MG TAB PO SCH ×2 (09:05→21:26)
--- NOTE | 2021-01-13 14:18 | Hospitalist Progress Note ---
Date of Service January 13, 2021 Assessment & Plan (1) COVID-19: (2) Syncope and collapse: (3) Acute respiratory failure with hypoxia: Acute hypoxic respiratory failure secondary to COVID-19 pneumonia Syncopal episodes is likely related to this. CT PE was negative for PE but has bilateral opacities Continue dexamethasone & Remdesivir therapy Monitor LFTs-remains stable Monitor inflammatory markers Incentive spirometry and flutter Continue oxygen supplementation and will wean as tolerated Clinically a lot better today-we will continue current treatment Remains stable and will continue current management Fall precautions Hold antihypertensive for now We will continue current NSS and discontinue affect current bag Advised to take extreme precaution to avoid falls and ask for help Has been ambulating in the room with precaution (4) History of coronary artery bypass graft: CAD s/p CABG x2 Continue aspirin, fenofibrate and atorvastatin Denies any cardiac symptoms (5) Hypertension: Controlled for now. Hold amlodipine and losartan for now We will restart blood pressure medications may be from tomorrow (6) CKD (chronic kidney disease) stage 3, GFR 30-59 ml/min: Baseline creatinine is 1.5 Creatinine is 1.49 Avoid nephrotoxins Creatinine has been normalized Was advised to drink more fluid (7) Prediabetes: Hemoglobin A1c was 6.4 in September 2020. Monitor Accu-Cheks with dexamethasone therapy (8) Anxiety: Continue home buspirone and sertraline (9) DVT prophylaxis: Heparin subcu for DVT prophylaxis Admission and Anticipated Discharge Date Admission Date: January 11, 2021 Subjective 01/12/2021 The patient was seen and examined in medical telemetry and Covid room He has minimal cough otherwise breathing has been improving He denies any more dizziness 01/13/2021 The patient was seen and examined in medical telemetry and Covid room He has been feeling better but is still requiring about 7 L of nasal cannula oxygen to maintain saturation Complains today of cough and generalized weakness Review of Systems Review of Systems: All systems reviewed and are unremarkable except as noted below Respiratory: + cough and + dyspnea on exertion Cardiovascular: no chest pain and no palpitations Physical Exam Physical Exam: Lying in bed with minimal shortness of breath at rest Constitutional: + ill appearing and average body habitus Eyes: PERRL, conjunctivae normal, anicteric sclerae ENMT: external ear and nose normal, oropharynx normal Neck: trachea midline, no thyromegaly Respiratory: + respiratory distress (Mild to moderate respiratory distress at rest); no retractions Auscultation: + diminished lung sounds and + crackles (Bibasilar crackles) Cardiovascular: Rate/Rhythm: regular rate and regular rhythm Heart Sounds: no murmur Extremities: no edema Gastrointestinal (Abdomen): Inspection/Auscultation: normal bowel sounds; abdomen not distended Percussion/Palpation: abdomen soft; abdomen nontender Musculoskeletal: No acute arthritis in any joint Neurologic: Alert, awake and oriented x3. No focal sensory and motor deficit appreciated Psychiatric: A+Ox3, euthymic affect Lymphatic: no cervical or axillary lymphadenopathy Results & Data Results & Data ([facility]) Vital Signs (Past 12 Hours) Vital Signs Temp Pulse Pulse Resp BP BP Pulse Ox 01/13/21 12:13 36.5 C 88 18 118/72 91 01/13/21 09:00 79 01/13/21 08:24 37.0 C 90 20 124/76 95 01/13/21 03:46 37 C 80 18 118/73 98 Laboratory Results [facility] [place] 01/13/21 05:47 Creatinine 1.34 Liver Function 01/13/21 Range/Units 05:47 AST 42 H (15-37) U/L ALT 64 (12-78) U/L Urine 01/12/21 Range/Units 15:57 Urine Color Dark Yellow Urine Appearance Clear (Clear) Urine pH 5.5 (4.5-7.5) Ur Specific [place] 1.040 H (1.000-1.030) Urine Protein 1+ H (Negative) Urine Glucose (UA) Negative (Negative) Medications Administered Current Inpatient Medications Acetaminophen (Acetaminophen 325 Mg Tab) 650 mg PO Q6H PRN PRN Reason: fever or pain Stop: 02/10/21 20:24 Aspirin (Aspirin 81 Mg Ectab) 81 mg PO DAILY [facility] Stop: 02/11/21 08:59 Last Admin: 01/13/21 09:05 Dose: 81 mg Documented by: Atorvastatin Calcium (Atorvastatin 40 Mg Tab) 80 mg PO QPM [facility] Stop: 02/10/21 20:59 Last Admin: 01/12/21 21:13 Dose: 80 mg Documented by: Buspirone HCl (Buspirone 5 Mg Tab) 10 mg PO BID [facility] Stop: 02/10/21 20:59 Last Admin: 01/13/21 09:05 Dose: 10 mg Documented by: Guaifenesin (Guaifenesin Sugar Free 100 Mg/5 Ml Udc) 100 mg PO Q6H PRN PRN Reason: Cough Stop: 02/10/21 20:24 Last Admin: 01/12/21 16:04 Dose: 100 mg Documented by: Heparin Sodium (Porcine) (Heparin Sod 5,000 Unit/0.5 Ml Vial) 5,000 units SQ Q8 [facility] Stop: 02/10/21 21:59 Last Admin: 01/13/21 06:09 Dose: 5,000 units Documented by: Dexamethasone 6 mg/ Syringe 1.5 mls @ 1 mls/min IV DAILY [facility] Stop: 01/22/21 08:59 Last Admin: 01/13/21 09:04 Dose: 1 mls/min Documented by: Remdesivir 100 mg/ Sodium (Chloride) 250 mls @ 250 mls/hr IV Q24H [facility]; Protocol Stop: 01/15/21 20:59 Last Infusion: 01/12/21 21:44 Dose: Infused Documented by: Metoprolol Tartrate (Metoprolol Tartrate 50 Mg Tab) 50 mg PO BID [facility] Stop: 02/10/21 20:59 Last Admin: 01/13/21 09:04 Dose: 50 mg Documented by: Miscellaneous (Fenofibrate: Order Awaiting Action) 1 ea N/A QS [facility] Stop: 02/11/21 00:00 Last Admin: 01/13/21 09:05 Dose: Not Given Documented by: Sertraline HCl (Sertraline Hcl 50 Mg Tablet) 25 mg PO QPM [facility] Stop: 02/10/21 20:59 Last Admin: 01/12/21 21:12 Dose: 25 mg Documented by: Sodium Chloride (Sodium Chloride 0.9% 10ml Flush) 30 ml IV Q24H [facility] Stop: 01/16/21 21:01 Last Admin: 01/12/21 21:44 Dose: 30 ml Documented by:
[2021-01-13] MEDS: REMDESIVIR 100 MG in SODIUM CHLORIDE 0.9% 230 ML IV SCH (20:11)
[2021-01-13] MEDS: ATORVASTATIN 40 MG TAB PO SCH (21:26)
[2021-01-13] MEDS: SERTRALINE HCL 50 MG TABLET PO SCH (21:27)
[2021-01-13] MEDS: SODIUM CHLORIDE 0.9% 10ML FLUSH IV SCH (21:31)
[2021-01-14] MEDS: HEPARIN SOD 5,000 UNIT/0.5 ML VIAL SQ SCH ×3 (05:35→21:15)
[2021-01-14 08:00] LABS: Creatinine Clr Calc Pharmacy 59.4 ml/min; Est GFR (African American) 66.9; Est GFR (Non-African American) 57.7
[2021-01-14] MEDS: dexAMETHasone 6 MG in SYRINGE 0 ML IV SCH (08:39)
[2021-01-14] MEDS: ASPIRIN 81 MG ECTAB PO SCH (08:40)
[2021-01-14] MEDS: busPIRone 5 MG TAB PO SCH ×2 (08:40→21:11)
[2021-01-14] MEDS: FENOFIBRATE: ORDER AWAITING ACTION SCH (08:40)
[2021-01-14] MEDS: METOPROLOL TARTRATE 50 MG TAB PO SCH ×2 (08:40→21:10)
[2021-01-14 13:18] LABS: Basophils # (auto) 0.01 K/uL (0-0.2); Basophils % (auto) 0.2 %; Eosinophils # (auto) 0.01 K/uL (0-0.5); Eosinophils % (auto) 0.2 %; Hematocrit (blood only) 40.5 % (42-52); Hemoglobin 14.3 g/dL (14.0-18.0); Immature Granulocytes # (auto) 0.01 K/uL (0.00-0.02); Immature Granulocytes % (auto) 0.2 %; Lymphocytes # (auto) 0.75 K/uL (1.2-3.4); Lymphocytes % (auto) 11.8 %; Mean Corpuscular Hemoglobin 31.9 pg (25-34); Mean Corpuscular Hgb Conc 35.3 g/dL (32-36); Mean Corpuscular Volume 90.4 fL (80-100); Mean Platelet Volume 9.5 fL (7.4-10.4); Monocytes % (auto) 7.9 %; Neutrophils # (auto) 5.08 K/uL (1.4-6.5); Neutrophils % (auto) 79.7 %; Platelet Count 271 K/uL (130-400); RDW Standard Deviation 43.1 fL (36.4-46.3); Red Blood Count 4.48 M/uL (4.7-6.1); White Blood Count 6.36 K/uL (4.8-10.8)
[2021-01-14 13:56] LABS: BUN Creatinine Ratio 25.4 (10-20); Calcium 8.2 mg/dl (8.5-10.1); Creatinine Clr Calc Pharmacy 53.8 ml/min; Est GFR (African American) 59.3; Est GFR (Non-African American) 51.2; Magnesium 2.1 mg/dl (1.8-2.4); Potassium 4.1 mmol/L (3.5-5.1)
[2021-01-14 13:58] LABS: C Reactive Protein 1.42 mg/dl (0-0.29); Phosphorus 2.2 mg/dl (2.5-4.9)
--- NOTE | 2021-01-14 13:59 | XRay Report ---
XR chest 1V portable HISTORY: Shortness of breath. Pneumonia COMPARISON: Chest CTA 01/11/2021 FINDINGS: No pneumothorax or no pleural effusions. The heart remains mildly enlarged. There are posts ternotomy changes. Slight improved aeration within the peripheral groundglass airspace opacities cons istent with a multifocal pneumonia. IMPRESSION: Slight improvement in the multifocal pneumonia. ACT 112: Negative or not required by law. Electronically signed by: Bar Sanchez M.D. 01/14/2021 1:57 PM
--- NOTE | 2021-01-14 15:28 | Hospitalist Progress Note ---
Date of Service January 14, 2021 Assessment & Plan (1) COVID-19: (2) Syncope and collapse: (3) Acute respiratory failure with hypoxia: Acute hypoxic respiratory failure secondary to COVID-19 pneumonia Syncopal episodes is likely related to this. CT PE was negative for PE but has bilateral opacities Continue dexamethasone & Remdesivir therapy Monitor LFTs-remains stable Monitor inflammatory markers Incentive spirometry and flutter Still requiring high flow oxygen up to 9 L/min to maintain saturation Clinically better and the chest x-ray is showing some improvement Inflammatory markers like CRP is minimally elevated Remdesivir course will be done after tomorrow's dose Likely discharge home day after tomorrow if oxygen requirements is reasonable Fall precautions Hold antihypertensive for now We will continue current NSS and discontinue affect current bag Advised to take extreme precaution to avoid falls and ask for help Has been ambulating in the room with precaution Will order PT and OT evaluation before discharge (4) History of coronary artery bypass graft: CAD s/p CABG x2 Continue aspirin, fenofibrate and atorvastatin Denies any cardiac symptoms (5) Hypertension: Controlled for now. Hold amlodipine and losartan for now We will start blood pressure medications (6) CKD (chronic kidney disease) stage 3, GFR 30-59 ml/min: Baseline creatinine is 1.5 Creatinine is 1.49 Avoid nephrotoxins Creatinine has been normalized Was advised to drink more fluid (7) Prediabetes: Hemoglobin A1c was 6.4 in September 2020. Monitor Accu-Cheks with dexamethasone therapy (8) Anxiety: Continue home buspirone and sertraline (9) DVT prophylaxis: Heparin subcu for DVT prophylaxis Admission and Anticipated Discharge Date Admission Date: January 11, 2021 Subjective 01/12/2021 The patient was seen and examined in medical telemetry and Covid room He has minimal cough otherwise breathing has been improving He denies any more dizziness 01/13/2021 The patient was seen and examined in medical telemetry and Covid room He has been feeling better but is still requiring about 7 L of nasal cannula oxygen to maintain saturation Complains today of cough and generalized weakness 01/14/2021 The patient was seen and examined in medical telemetry unit and Covid room He has been feeling a little better and is still requiring about 7 to 9 L of nasal cannula oxygen to maintain saturation Denies any significant cough and no shortness of breath at rest No fever and/or chills Review of Systems Review of Systems: All systems reviewed and are unremarkable except as noted below Constitutional: + chills, + body aches and + fatigue; no fever Eyes: Blurry vision Respiratory: + cough and + dyspnea on exertion Musculoskeletal: + myalgia Neurologic: + dizziness; no tremor(s), no headache(s) and no confusion Physical Exam Physical Exam: Lying in bed with minimal shortness of breath at rest Constitutional: + ill appearing and average body habitus Eyes: PERRL, conjunctivae normal, anicteric sclerae ENMT: external ear and nose normal, oropharynx normal Neck: trachea midline, no thyromegaly Respiratory: + respiratory distress (Mild to moderate respiratory distress at rest); no retractions Auscultation: + diminished lung sounds, + crackles (Bibasilar crackles) and + wheezes (Occasional wheezing) Cardiovascular: Rate/Rhythm: regular rate and regular rhythm Heart Sounds: no murmur Extremities: no edema Gastrointestinal (Abdomen): Inspection/Auscultation: normal bowel sounds; abdomen not distended Percussion/Palpation: abdomen soft; abdomen nontender Musculoskeletal: No acute arthritis in any joint Neurologic: Alert, awake and oriented x3. Generally weak without any focal neuro deficit Psychiatric: A+Ox3, euthymic affect Lymphatic: no cervical or axillary lymphadenopathy Results & Data Results & Data ([facility]) Vital Signs (Past 12 Hours) Vital Signs Temp Pulse Pulse Resp BP BP Pulse Ox 01/14/21 14:47 80 01/14/21 08:30 74 01/14/21 07:51 36.8 C 87 149/80 H 90 01/14/21 04:00 37.0 C 76 18 135/76 92 Laboratory Results Short CBC 01/14/21 Range/Units 13:03 WBC 6.36 (4.8-10.8) K/uL Hgb 14.3 (14.0-18.0) g/dL Hct 40.5 L (42-52) % Plt Count 271 (130-400) K/uL BMP 01/14/21 01/14/21 07:10 13:03 Sodium 137 Potassium 4.1 Chloride 107 Carbon Dioxide 25 BUN 35 H Creatinine 1.24 1.37 Glucose 188 H Calcium 8.2 L Liver Function 01/14/21 Range/Units 07:10 AST 47 H (15-37) U/L ALT 59 (12-78) U/L Medications Administered Current Inpatient Medications Acetaminophen (Acetaminophen 325 Mg Tab) 650 mg PO Q6H PRN PRN Reason: fever or pain Stop: 02/10/21 20:24 Aspirin (Aspirin 81 Mg Ectab) 81 mg PO DAILY [facility] Stop: 02/11/21 08:59 Last Admin: 01/14/21 08:40 Dose: 81 mg Documented by: Atorvastatin Calcium (Atorvastatin 40 Mg Tab) 80 mg PO QPM [facility] Stop: 02/10/21 20:59 Last Admin: 01/13/21 21:26 Dose: 80 mg Documented by: Buspirone HCl (Buspirone 5 Mg Tab) 10 mg PO BID [facility] Stop: 02/10/21 20:59 Last Admin: 01/14/21 08:40 Dose: 10 mg Documented by: Fenofibrate (Fenofibrate Nanocrystallized 145 Mg Tablet) 145 mg PO QAM [facility] Stop: 02/13/21 15:59 Guaifenesin (Guaifenesin Sugar Free 100 Mg/5 Ml Udc) 100 mg PO Q6H PRN PRN Reason: Cough Stop: 02/10/21 20:24 Last Admin: 01/12/21 16:04 Dose: 100 mg Documented by: Heparin Sodium (Porcine) (Heparin Sod 5,000 Unit/0.5 Ml Vial) 5,000 units SQ Q8 [facility] Stop: 02/10/21 21:59 Last Admin: 01/14/21 05:35 Dose: 5,000 units Documented by: Dexamethasone 6 mg/ Syringe 1.5 mls @ 1 mls/min IV DAILY [facility] Stop: 01/22/21 08:59 Last Admin: 01/14/21 08:39 Dose: 1 mls/min Documented by: Remdesivir 100 mg/ Sodium (Chloride) 250 mls @ 250 mls/hr IV Q24H [facility]; Protocol Stop: 01/15/21 20:59 Last Infusion: 01/13/21 21:32 Dose: Infused Documented by: Metoprolol Tartrate (Metoprolol Tartrate 50 Mg Tab) 50 mg PO BID [facility] Stop: 02/10/21 20:59 Last Admin: 01/14/21 08:40 Dose: 50 mg Documented by: Sertraline HCl (Sertraline Hcl 50 Mg Tablet) 25 mg PO QPM [facility] Stop: 02/10/21 20:59 Last Admin: 01/13/21 21:27 Dose: 25 mg Documented by: Sodium Chloride (Sodium Chloride 0.9% 10ml Flush) 30 ml IV Q24H [facility] Stop: 01/16/21 21:01 Last Admin: 01/13/21 21:31 Dose: 30 ml Documented by:
[2021-01-14] MEDS ORDERED: amLODIPine BESYLATE 5 MG TAB PO ONE (15:33)
[2021-01-14] MEDS: FENOFIBRATE NANOCRYSTALLIZED 145 MG TABLET PO SCH (16:00)
[2021-01-14] MEDS: REMDESIVIR 100 MG in SODIUM CHLORIDE 0.9% 230 ML IV SCH (20:18)
[2021-01-14] MEDS: ATORVASTATIN 40 MG TAB PO SCH (21:10)
[2021-01-14] MEDS: SERTRALINE HCL 50 MG TABLET PO SCH (21:11)
[2021-01-14] MEDS: SODIUM CHLORIDE 0.9% 10ML FLUSH IV SCH (22:13)
[2021-01-15] MEDS: HEPARIN SOD 5,000 UNIT/0.5 ML VIAL SQ SCH ×3 (06:26→21:22)
[2021-01-15 07:34] LABS: Creatinine Clr Calc Pharmacy 70.3 ml/min; Est GFR (African American) 81.8; Est GFR (Non-African American) 70.6
[2021-01-15] MEDS: dexAMETHasone 6 MG in SYRINGE 0 ML IV SCH (08:41)
[2021-01-15] MEDS: LOSARTAN POTASSIUM 25 MG TAB PO SCH (08:42)
[2021-01-15] MEDS: ASPIRIN 81 MG ECTAB PO SCH (08:42)
[2021-01-15] MEDS: busPIRone 5 MG TAB PO SCH ×2 (08:42→20:07)
[2021-01-15] MEDS: METOPROLOL TARTRATE 50 MG TAB PO SCH ×2 (08:42→20:07)
[2021-01-15] MEDS: amLODIPine BESYLATE 5 MG TAB PO SCH (08:43)
[2021-01-15] MEDS: FENOFIBRATE NANOCRYSTALLIZED 145 MG TABLET PO SCH (08:43)
--- NOTE | 2021-01-15 13:03 | Hospitalist Progress Note ---
Date of Service January 15, 2021 Assessment & Plan (1) COVID-19: (2) Syncope and collapse: (3) Acute respiratory failure with hypoxia: Acute hypoxic respiratory failure secondary to COVID-19 pneumonia Syncopal episodes is likely related to this. CT PE was negative for PE but has bilateral opacities Continue on dexamethasone and remdesivir. Monitor daily LFTs. Encourage incentive spirometer/flutter therapy. Continues to require roughly 9 L of oxygen. We will give 1 dose of IV Lasix 20 mg now to help wean off the oxygen. Work with PT.OT. (4) History of coronary artery bypass graft: CAD s/p CABG x2 Continue aspirin, fenofibrate and atorvastatin. (5) Hypertension: C/W amlodipine and losartan for now (6) CKD (chronic kidney disease) stage 3, GFR 30-59 ml/min: Baseline creatinine is 1.5 Creatinine is 1.49 Avoid nephrotoxins (7) Prediabetes: Hemoglobin A1c was 6.4 in September 2020. Monitor Accu-Cheks with dexamethasone therapy (8) Anxiety: Continue home buspirone and sertraline (9) DVT prophylaxis: Heparin subcu for DVT prophylaxis Admission and Anticipated Discharge Date Admission Date: January 11, 2021 Subjective Currently resting comfortably in the recliner. Denies any shortness of breath but does have a nonproductive cough. Denies any chest pain, abdominal pain, diarrhea or dysuria. Denies any headache or dizziness. His appetite is okay. Review of Systems Review of Systems: All systems reviewed & are unremarkable except as noted in HPI & below Physical Exam Physical Exam: General: A&Ox3 HENT: NCAT, MMM, EOMI Eyes: PERRLA Neck: Supple, normal range of motion CVS: normal rate and rhythm Resp: b/l coarse breath sounds Abdomen: Soft, ND/NT, +BS Extremities: No c/c/e Neuro: face symmetric, strength grossly equal, no focal deficit Skin: warm and dry, no rashes/lesions/errythema MSK: normal ROM, no joint swelling/erythema Results & Data Results & Data ([facility]) Vital Signs (Past 12 Hours) Vital Signs Temp Pulse Pulse Resp BP BP Pulse Ox 01/15/21 12:37 36.6 C 78 20 108/63 94 01/15/21 09:35 72 01/15/21 08:28 36.8 C 71 20 134/75 93 01/15/21 04:17 36.6 C 73 18 101/65 93
[2021-01-15] MEDS ORDERED: FUROSEMIDE 20 MG in SYRINGE 0 ML IV ONE (13:30)
[2021-01-15] MEDS: REMDESIVIR 100 MG in SODIUM CHLORIDE 0.9% 230 ML IV SCH (20:06)
[2021-01-15] MEDS: ATORVASTATIN 40 MG TAB PO SCH (20:07)
[2021-01-15] MEDS: SERTRALINE HCL 50 MG TABLET PO SCH (20:08)
[2021-01-15] MEDS: SODIUM CHLORIDE 0.9% 10ML FLUSH IV SCH (21:22)
[2021-01-16] MEDS: HEPARIN SOD 5,000 UNIT/0.5 ML VIAL SQ SCH ×3 (06:00→20:47)
[2021-01-16] MEDS: busPIRone 5 MG TAB PO SCH ×2 (08:55→20:46)
[2021-01-16] MEDS: METOPROLOL TARTRATE 50 MG TAB PO SCH ×2 (08:55→20:47)
[2021-01-16] MEDS: LOSARTAN POTASSIUM 25 MG TAB PO SCH (08:55)
[2021-01-16] MEDS: ASPIRIN 81 MG ECTAB PO SCH (08:56)
[2021-01-16] MEDS: amLODIPine BESYLATE 5 MG TAB PO SCH (08:56)
[2021-01-16] MEDS: FENOFIBRATE NANOCRYSTALLIZED 145 MG TABLET PO SCH (08:56)
[2021-01-16] MEDS: dexAMETHasone 6 MG in SYRINGE 0 ML IV SCH (08:57)
[2021-01-16 09:59] LABS: BUN Creatinine Ratio 32.2 (10-20); Calcium 8.5 mg/dl (8.5-10.1); Creatinine Clr Calc Pharmacy 67.2 ml/min; Est GFR (African American) 79.1; Est GFR (Non-African American) 68.2; Potassium 3.9 mmol/L (3.5-5.1)
[2021-01-16 10:57] LABS: Basophils # (auto) 0.01 K/uL (0-0.2); Basophils % (auto) 0.1 %; Eosinophils % (auto) 1.1 %; Hematocrit (blood only) 40.3 % (42-52); Hemoglobin 14.4 g/dL (14.0-18.0); Immature Granulocytes # (auto) 0.05 K/uL (0.00-0.02); Immature Granulocytes % (auto) 0.6 %; Lymphocytes % (auto) 16.8 %; Mean Corpuscular Hemoglobin 32.4 pg (25-34); Mean Corpuscular Hgb Conc 35.7 g/dL (32-36); Mean Corpuscular Volume 90.6 fL (80-100); Mean Platelet Volume 9.8 fL (7.4-10.4); Monocytes # (auto) 0.67 K/uL (0.11-0.59); Monocytes % (auto) 7.5 %; Neutrophils # (auto) 6.59 K/uL (1.4-6.5); Neutrophils % (auto) 73.9 %; Platelet Count 341 K/uL (130-400); RDW Coefficient of Variation 13.1 % (11.5-14.5); RDW Standard Deviation 43.6 fL (36.4-46.3); Red Blood Count 4.45 M/uL (4.7-6.1); White Blood Count 8.92 K/uL (4.8-10.8)
[2021-01-16 11:27] LABS: Albumin Globulin Ratio 0.7 (0.9-2); Albumin Level 2.5 gm/dl (3.4-5.0); Bilirubin,Total 0.4 mg/dl (0.2-1); Globulin 3.6 gm/dl (2.5-4.0); Total Protein 6.1 gm/dl (6.4-8.2)
[2021-01-16 11:31] LABS: C Reactive Protein 1.32 mg/dl (0-0.29)
[2021-01-16] MEDS ORDERED: FUROSEMIDE 40 MG in SYRINGE 0 ML IV ONE (13:15)
--- NOTE | 2021-01-16 13:32 | Hospitalist Progress Note ---
Date of Service January 16, 2021 Assessment & Plan (1) COVID-19: (2) Syncope and collapse: (3) Acute respiratory failure with hypoxia: Acute hypoxic respiratory failure secondary to COVID-19 pneumonia Syncopal episodes is likely related to this. CT PE was negative for PE but has bilateral opacities Continue on dexamethasone, completed course of remdesivir. Monitor daily LFTs. Encourage incentive spirometer/flutter therapy. Desponded good to IV Lasix. Give another dose of IV Lasix 20 mg now. Continue to monitor ins and outs along with daily weights. Hopefully should assist with weaning down from the oxygen. Work with PT.OT. (4) History of coronary artery bypass graft: CAD s/p CABG x2 Continue aspirin, fenofibrate and atorvastatin. (5) Hypertension: C/W amlodipine and losartan for now (6) CKD (chronic kidney disease) stage 3, GFR 30-59 ml/min: Baseline creatinine is 1.5 Creatinine is 1.49 Avoid nephrotoxins (7) Prediabetes: Hemoglobin A1c was 6.4 in September 2020. Monitor Accu-Cheks with dexamethasone therapy (8) Anxiety: Continue home buspirone and sertraline (9) DVT prophylaxis: Heparin subcu for DVT prophylaxis Admission and Anticipated Discharge Date Admission Date: January 11, 2021 Subjective Doing okay this morning. He is weaned down to 7 L of nasal cannula. Has any shortness of breath or any significant cough. Rest of the review of system is negative. Hemodynamically patient is doing fine. Review of Systems Review of Systems: All systems reviewed & are unremarkable except as noted in HPI & below Physical Exam Physical Exam: General: A&Ox3 HENT: NCAT, MMM, EOMI Eyes: PERRLA Neck: Supple, normal range of motion CVS: normal rate and rhythm Resp: b/l coarse breath sounds Abdomen: Soft, ND/NT, +BS Extremities: No c/c/e Neuro: face symmetric, strength grossly equal, no focal deficit Skin: warm and dry, no rashes/lesions/errythema MSK: normal ROM, no joint swelling/erythema Results & Data Results & Data ([facility]) Vital Signs (Past 12 Hours) Vital Signs Temp Pulse Resp BP BP Pulse Ox 01/16/21 11:48 36.6 C 75 18 97/60 L 93 01/16/21 06:40 36.6 C 67 18 132/74 96 01/16/21 03:54 36.7 C 67 20 129/77 97
[2021-01-16] MEDS ORDERED: FUROSEMIDE 20 MG in SYRINGE 0 ML IV ONE (13:45)
[2021-01-16] MEDS: ATORVASTATIN 40 MG TAB PO SCH (20:46)
[2021-01-16] MEDS: SERTRALINE HCL 50 MG TABLET PO SCH (20:47)
[2021-01-17] MEDS: HEPARIN SOD 5,000 UNIT/0.5 ML VIAL SQ SCH ×3 (05:51→21:24)
[2021-01-17 07:41] LABS: Calcium 8.8 mg/dl (8.5-10.1); Est GFR (African American) 70.3; Est GFR (Non-African American) 60.7; Potassium 3.9 mmol/L (3.5-5.1)
[2021-01-17] MEDS: SODIUM CHLORIDE 0.9% 10ML FLUSH IV SCH (08:00)
[2021-01-17] MEDS: FENOFIBRATE NANOCRYSTALLIZED 145 MG TABLET PO SCH (08:01)
[2021-01-17] MEDS: amLODIPine BESYLATE 5 MG TAB PO SCH (08:01)
[2021-01-17] MEDS: dexAMETHasone 6 MG in SYRINGE 0 ML IV SCH (08:01)
[2021-01-17] MEDS: LOSARTAN POTASSIUM 25 MG TAB PO SCH (08:01)
[2021-01-17] MEDS: METOPROLOL TARTRATE 50 MG TAB PO SCH ×2 (08:01→21:21)
[2021-01-17] MEDS: busPIRone 5 MG TAB PO SCH ×2 (08:01→21:22)
[2021-01-17] MEDS: ASPIRIN 81 MG ECTAB PO SCH (08:01)
[2021-01-17] MEDS: guaiFENesin SUGAR FREE 100 MG/5 ML UDC PO PRN ×2 (12:02→21:55)
--- NOTE | 2021-01-17 13:13 | Hospitalist Progress Note ---
Date of Service January 17, 2021 Assessment & Plan (1) Pneumonia due to COVID-19 virus: maintains on Decadron and tolerating this. Cont supportive care efforts. (2) Post-tussive syncope: cough has resolved. (3) Acute respiratory failure with hypoxia: Acute hypoxic respiratory failure secondary to COVID-19 pneumonia Continue on dexamethasone, completed course of remdesivir. Encourage incentive spirometer/flutter therapy. Responded well to some intravenous lasix. Cont PT/OT (4) History of coronary artery bypass graft: CAD s/p CABG x2 Continue aspirin, fenofibrate and atorvastatin. (5) Hypertension: well controlled, C/W amlodipine and losartan for now (6) CKD (chronic kidney disease) stage 3, GFR 30-59 ml/min: Baseline creatinine is 1.5 Creatinine is 1.49 Avoid nephrotoxins (7) Prediabetes: Hemoglobin A1c was 6.4 in September 2020. Monitor Accu-Cheks with dexamethasone therapy (8) Anxiety: Continue home buspirone and sertraline (9) DVT prophylaxis: Heparin subcu for DVT prophylaxis Full Code Dispo-to home when able. Dinorah Beard DO [facility] Hospitalist Admission and Anticipated Discharge Date Admission Date: January 11, 2021 Subjective 70 yo M with covid pneumonia admitted with acute respiratory failure. Hypoxia is improving Pulm consulted out of concern for persistent hypoxia. Afebrile Initial symptoms have resolved. Feeling well overall. Review of Systems Review of Systems: All systems reviewed & are unremarkable except as noted in Subjective Physical Exam Physical Exam: CONSTITUTIONAL: WNWD, vitals as above, generally well- appearing EYES: normal conjunctivae, no scleral icterus ENT: external ear and nose normal, MMM RESPIRATORY: clear to auscultation bilaterally, no crackles, rales or wheezes, normal respiratory effort CARDIOVASCULAR: regular rate and rhythm, S1 and 2 heard without murmurs, gallops or rubs, no JVD, no peripheral edema GASTROINTESTINAL: soft, nontender, nondistended, , no guarding MUSCULOSKELETAL: strength 5/5 throughout, head is normocephalic and atraumatic SKIN: warm and dry NEUROLOGIC: CN 2-12 grossly intact, no sensory deficit, normal cognition, normal speech, no tremor PSYCHIATRIC: alert cooperative and oriented to person, place and time. Results & Data Results & Data ([facility]) Vital Signs (Past 12 Hours) Vital Signs Temp Pulse Resp BP Pulse Ox 01/17/21 12:00 36.6 C 74 100/62 92 01/17/21 08:02 36.6 C 75 96/60 L 92 01/17/21 02:18 36.6 C 72 16 109/70 93 Laboratory Results BMP 01/17/21 06:13 Sodium 139 Potassium 3.9 Chloride 104 Carbon Dioxide 31 BUN 39 H Creatinine 1.19 Glucose 154 H Calcium 8.8 Medications Administered Current Inpatient Medications Acetaminophen (Acetaminophen 325 Mg Tab) 650 mg PO Q6H PRN PRN Reason: fever or pain Stop: 02/10/21 20:24 Amlodipine Besylate (Amlodipine Besylate 5 Mg Tab) 10 mg PO QAM [facility] Stop: 02/14/21 08:59 Last Admin: 01/17/21 08:01 Dose: 10 mg Documented by: Aspirin (Aspirin 81 Mg Ectab) 81 mg PO DAILY [facility] Stop: 02/11/21 08:59 Last Admin: 01/17/21 08:01 Dose: 81 mg Documented by: Atorvastatin Calcium (Atorvastatin 40 Mg Tab) 80 mg PO QPM [facility] Stop: 02/10/21 20:59 Last Admin: 01/16/21 20:46 Dose: 80 mg Documented by: Buspirone HCl (Buspirone 5 Mg Tab) 10 mg PO BID [facility] Stop: 02/10/21 20:59 Last Admin: 01/17/21 08:01 Dose: 10 mg Documented by: Fenofibrate (Fenofibrate Nanocrystallized 145 Mg Tablet) 145 mg PO QAM [facility] Stop: 02/13/21 15:59 Last Admin: 01/17/21 08:01 Dose: 145 mg Documented by: Guaifenesin (Guaifenesin Sugar Free 100 Mg/5 Ml Udc) 100 mg PO Q6H PRN PRN Reason: Cough Stop: 02/10/21 20:24 Last Admin: 01/17/21 12:02 Dose: 100 mg Documented by: Heparin Sodium (Porcine) (Heparin Sod 5,000 Unit/0.5 Ml Vial) 5,000 units SQ Q8 [facility] Stop: 02/10/21 21:59 Last Admin: 01/17/21 05:51 Dose: 5,000 units Documented by: Dexamethasone 6 mg/ Syringe 1.5 mls @ 1 mls/min IV DAILY [facility] Stop: 01/22/21 08:59 Last Admin: 01/17/21 08:01 Dose: 1 mls/min Documented by: Losartan Potassium (Losartan Potassium 25 Mg Tab) 25 mg PO QAM [facility] Stop: 02/14/21 08:59 Last Admin: 01/17/21 08:01 Dose: 25 mg Documented by: Metoprolol Tartrate (Metoprolol Tartrate 50 Mg Tab) 50 mg PO BID [facility] Stop: 02/10/21 20:59 Last Admin: 01/17/21 08:01 Dose: Not Given Documented by: Sertraline HCl (Sertraline Hcl 50 Mg Tablet) 25 mg PO QPM [facility] Stop: 02/10/21 20:59 Last Admin: 01/16/21 20:47 Dose: 25 mg Documented by:
[2021-01-17] MEDS: SERTRALINE HCL 50 MG TABLET PO SCH (21:22)
[2021-01-17] MEDS: ATORVASTATIN 40 MG TAB PO SCH (21:23)
[2021-01-18] MEDS: HEPARIN SOD 5,000 UNIT/0.5 ML VIAL SQ SCH ×2 (06:07→14:01)
[2021-01-18] MEDS: dexAMETHasone 6 MG in SYRINGE 0 ML IV SCH (08:37)
[2021-01-18] MEDS: FENOFIBRATE NANOCRYSTALLIZED 145 MG TABLET PO SCH (08:38)
[2021-01-18] MEDS: METOPROLOL TARTRATE 50 MG TAB PO SCH ×2 (08:38→22:48)
[2021-01-18] MEDS: ASPIRIN 81 MG ECTAB PO SCH (08:38)
[2021-01-18] MEDS: LOSARTAN POTASSIUM 25 MG TAB PO SCH (08:38)
[2021-01-18] MEDS: busPIRone 5 MG TAB PO SCH ×2 (08:38→22:48)
[2021-01-18] MEDS: amLODIPine BESYLATE 5 MG TAB PO SCH (08:38)
[2021-01-18] MEDS: guaiFENesin SUGAR FREE 100 MG/5 ML UDC PO PRN (08:43)
--- NOTE | 2021-01-18 12:11 | Pulmonary Consultation ---
Date of Consultation January 18, 2021 Assessment & Plan (1) Pneumonia due to COVID-19 virus: CT chest 01/11/2021 personally reviewed: Centrilobular and paraseptal emphysema appreciated bilaterally, patchy opacities appreciated bilaterally, patient has some bronchiectasis of the right lower lobe as well. No mediastinal lymphadenopathy. --Acute hypoxic respiratory failure Likely secondary to multilobar COVID-19 pneumonia Diagnosed 01/11/2021 Completed the course of remdesivir Continue with dexamethasone for total of 10 days O2 supplementation to keep oxygen saturation between 88-92% --COPD with emphysema Not on any inhalers at home We will start the patient on Anoro --Bronchiectasis bilateral lower lobes Etiology unclear Continue with flutter valve and mucolytic --Ex-smoker Greater than [id number] smoking history Quit in 2009 Encouraged to be abstinent from smoking Plan: In/out: Patient is -4.6 L since coming to the hospital. Patient has made significant progress after coming to the hospital with COVID-19 pneumonia He was saturating 91% on 2 L nasal cannula. Gradually try to titrate it off. The patient will likely need oxygen when he goes home. I am optimistic that it could be gradually titrated off as an outpatient I am going to start the patient on Anoro to be used on a daily basis. Patient will benefit from PFTs and pulmonary follow-up as an outpatient on an nonurgent basis in a month or so. No further recommendations from pulmonary perspective. Please call directly with any questions Please note the above document was generated using voice recognition software. It may contain grammatical, syntax or spelling errors.Any formal questions or concerns about the content, text or information contained within the body of this dictation should be directly addressed to the provider for clarification. (2) Acute respiratory failure with hypoxia: (3) COPD with emphysema: (4) Shortness of breath: (5) Bronchiectasis: History of Present Illness Attending Physician: Dinorah Beard DO History of Present Illness 70-year-old male was admitted to the hospital because of COVID-19 pneumonia and hypoxia Past medical history: Hypertension, coronary artery disease s/p CABG in 2009, CKD Pulmonary were consulted because of the CT scan findings and hypoxia Patient also had had a syncopal episode at home does have he presented to the hospital At the time of examination patient was saturating 94% on 3 L nasal cannula. I went down to 2 L and he was still saturating 91% at the end of interrogation He says he is feeling significantly better when it comes to his breathing. He has occasional cough but is not bringing up any phlegm. He has been using incentive spirometry and he goes up to 2500 mL each time he does it. Denies any dysuria, no diarrhea. No headache, no blurry vision. No nausea or vomiting. Good appetite. No personal family history of any autoimmune disease. No history of lung disease in the family. Social history: [id number] smoking history, quit in 2009 after CABG, denies any illicit drug use, no alcohol use. 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 No personal or family history of asthma. Allergies Allergy/AdvReac Type Severity Reaction Status Date / Time Penicillins Allergy Severe Rash Unverified 01/11/21 16:39 Home Medications Medication Instructions Recorded Confirmed Type amlodipine 10 mg PO QAM 01/11/21 01/11/21 History aspirin 81 mg PO DAILY 01/11/21 01/11/21 History atorvastatin 80 mg PO QPM 01/11/21 01/11/21 History buspirone 10 mg PO BID 01/11/21 01/11/21 History fenofibrate 160 mg PO QAM 01/11/21 01/11/21 History losartan 25 mg PO QAM 01/11/21 01/11/21 History metoprolol tartrate 50 mg PO BID 01/11/21 01/11/21 History sertraline 25 mg PO QPM 01/11/21 01/11/21 History Patient History Social History (Updated 01/11/21 @ 19:25 by Brenda Gifford MD) Smoking Status: Former smoker Smoking End Date: 10 years ago; Hx Alcohol Use: Yes Hx Substance Use: No Preferred Language: Maori Communication Ability: Effective [employer] Required: No Beliefs That Will Affect Care: None marital status: Current Living Situation: Family Current Living Situation Comment: Lives with and son Feels Safe at Home: Yes Assistive Devices: Oxygen - Continuous Assistive Devices Comment: Dentures at home. States he does not wear them very much. Review of Systems Review of Systems: All systems reviewed & are unremarkable except as noted in HPI & below Physical Exam Physical Exam: Constitutional: No acute distress HEENT: EOMI, PERRLA Respiratory system: Decreased air entry bilaterally, no wheeze, no rhonchi, positive crackles bilateral lower lobes CVS: S1-S2 positive, no murmurs or gallops Abdomen: Soft, nontender, nondistended, positive bowel sounds x4 Extremities: +2 pulses bilaterally radialis/ dorsalis pedis, no cyanosis, no edema Neuro: Awake alert oriented x3 Psych: Normal mood and affect G/U: No [place] Skin: no rashes, warm and dry Lymphatic: no cervical or axillary lymphadenopathy Results & Data Results & Data ([facility]) Vital Signs (Past 12 Hours) Vital Signs Temp Pulse Pulse Resp BP BP Pulse Ox 01/18/21 10:55 36.5 C 78 18 112/66 91 01/18/21 08:02 36.8 C 70 20 116/75 91 01/18/21 04:23 36.9 C 74 18 118/80 93 01/18/21 01:15 69 01/16/21 09:11 01/17/21 06:13 PG Care Time/CCT Total # of Minutes Spent Total Time Spent with Patient: Total time spent is greater than 50% in coordination of care (as documented) at patient's floor/unit and/or counseling patient: Coding Level of Care Code 57843 Initial Inpt Care Lvl 3 Diagnoses Pneumonia due to COVID-19 virus U07.1; J12.82 Acute respiratory failure with hypoxia J96.01 COPD with emphysema J43.9 Shortness of breath R06.02 Bronchiectasis J47.9
[2021-01-18] MEDS: UMECLIDINIUM/VILANTEROL 62.5/25MCG 7 PUFFS/INHALER INH SCH (14:00)
--- NOTE | 2021-01-18 15:24 | Hospitalist Progress Note ---
Date of Service January 18, 2021 Assessment & Plan (1) Pneumonia due to COVID-19 virus: maintains on Decadron and tolerating this. Cont supportive care efforts. (2) Acute respiratory failure with hypoxia: Acute hypoxic respiratory failure secondary to COVID-19 pneumonia Continue on dexamethasone, completed course of remdesivir. Encourage incentive spirometer/flutter therapy. Responded well to some intravenous lasix. Cont PT/OT (3) Post-tussive syncope: cough has resolved. (4) COPD (chronic obstructive pulmonary disease): Per pulmonology, patient has COPD. Recommend Anoro at discharge with outpatient pulmonary follow-up in 1 month nonurgently and outpatient PFTs. (5) History of coronary artery bypass graft: CAD s/p CABG x2 Continue aspirin, fenofibrate and atorvastatin. (6) Hypertension: well controlled, C/W amlodipine and losartan for now (7) CKD (chronic kidney disease) stage 3, GFR 30-59 ml/min: Currently at his baseline. (8) Prediabetes: Hemoglobin A1c was 6.4 in September 2020. Monitor Accu-Cheks with dexamethasone therapy (9) Anxiety: Continue home buspirone and sertraline (10) DVT prophylaxis: Heparin subcu for DVT prophylaxis Full Code Dispo-to home when able. Dinorah Beard DO [facility] Hospitalist Admission and Anticipated Discharge Date Admission Date: January 11, 2021 Subjective 70-year-old man admitted for Covid pneumonia. Persistent residual hypoxia. Doing better from an oxygen needs standpoint. Diagnosed with COPD and bronchiectasis per pulmonary today given Anoro at discharge and recommendation for outpatient PFTs. Patient has a history of smoking in the past. Overall he feels better today his initial symptoms have resolved and he is denying shortness of breath, fevers, chills or other issues today. Review of Systems Review of Systems: All systems reviewed & are unremarkable except as noted in Subjective Physical Exam Physical Exam: CONSTITUTIONAL: WNWD, vitals as above, generally well- appearing EYES: normal conjunctivae, no scleral icterus ENT: external ear and nose normal, MMM RESPIRATORY: clear to auscultation bilaterally, no crackles, rales or wheezes, normal respiratory effort CARDIOVASCULAR: regular rate and rhythm, S1 and 2 heard without murmurs, ga llops or rubs, no JVD, no peripheral edema GASTROINTESTINAL: soft, nontender, nondistended, , no guarding MUSCULOSKELETAL: strength 5/5 throughout, head is normocephalic and atraumatic SKIN: warm and dry NEUROLOGIC: CN 2-12 grossly intact, no sensory deficit, normal cognition, normal speech, no tremor PSYCHIATRIC: alert cooperative and oriented to person, place and time. Results & Data Results & Data ([facility]) Vital Signs (Past 12 Hours) Vital Signs Temp Pulse Resp BP BP Pulse Ox 01/18/21 14:03 90 01/18/21 10:55 36.5 C 78 18 112/66 91 01/18/21 08:02 36.8 C 70 20 116/75 91 01/18/21 04:23 36.9 C 74 18 118/80 93 Medications Administered Current Inpatient Medications Acetaminophen (Acetaminophen 325 Mg Tab) 650 mg PO Q6H PRN PRN Reason: fever or pain Stop: 02/10/21 20:24 Amlodipine Besylate (Amlodipine Besylate 5 Mg Tab) 10 mg PO QAM QUINTIN Stop: 02/14/21 08:59 Last Admin: 01/18/21 08:38 Dose: 10 mg Documented by: Aspirin (Aspirin 81 Mg Ectab) 81 mg PO DAILY QUINTIN Stop: 02/11/21 08:59 Last Admin: 01/18/21 08:38 Dose: 81 mg Documented by: Atorvastatin Calcium (Atorvastatin 40 Mg Tab) 80 mg PO QPM QUINTIN Stop: 02/10/21 20:59 Last Admin: 01/17/21 21:23 Dose: 80 mg Documented by: Buspirone HCl (Buspirone 5 Mg Tab) 10 mg PO BID QUINTIN Stop: 02/10/21 20:59 Last Admin: 01/18/21 08:38 Dose: 10 mg Documented by: Dexamethasone (Dexamethasone 1 Mg Tab) 6 mg PO DAILY QUINTIN Stop: 02/18/21 08:59 Fenofibrate (Fenofibrate Nanocrystallized 145 Mg Tablet) 145 mg PO QAM QUINTIN Stop: 02/13/21 15:59 Last Admin: 01/18/21 08:38 Dose: 145 mg Documented by: Guaifenesin (Guaifenesin Sugar Free 100 Mg/5 Ml Udc) 100 mg PO Q6H PRN PRN Reason: Cough Stop: 02/10/21 20:24 Last Admin: 01/18/21 08:43 Dose: 100 mg Documented by: Heparin Sodium (Porcine) (Heparin Sod 5,000 Unit/0.5 Ml Vial) 5,000 units SQ Q8 QUINTIN Stop: 02/10/21 21:59 Last Admin: 01/18/21 14:01 Dose: 5,000 units Documented by: Losartan Potassium (Losartan Potassium 25 Mg Tab) 25 mg PO QAM QUINTIN Stop: 02/14/21 08:59 Last Admin: 01/18/21 08:38 Dose: 25 mg Documented by: Metoprolol Tartrate (Metoprolol Tartrate 50 Mg Tab) 50 mg PO BID QUINTIN Stop: 02/10/21 20:59 Last Admin: 01/18/21 08:38 Dose: 50 mg Documented by: Sertraline HCl (Sertraline Hcl 50 Mg Tablet) 25 mg PO QPM QUINTIN Stop: 02/10/21 20:59 Last Admin: 01/17/21 21:22 Dose: 25 mg Documented by: Umeclidinium/Vilanterol (Umeclidinium/Vilanterol 62.5/25mcg 7 Puffs/Inhaler) 1 puffs INH DAILY QUINTIN Stop: 02/17/21 12:29 Last Admin: 01/18/21 14:00 Dose: 1 puffs Documented by:
[2021-01-18] MEDS: ATORVASTATIN 40 MG TAB PO SCH (22:47)
[2021-01-18] MEDS: SERTRALINE HCL 50 MG TABLET PO SCH (22:49)
[2021-01-19] MEDS: busPIRone 5 MG TAB PO SCH (08:56)
[2021-01-19] MEDS: FENOFIBRATE NANOCRYSTALLIZED 145 MG TABLET PO SCH (08:56)
[2021-01-19] MEDS: UMECLIDINIUM/VILANTEROL 62.5/25MCG 7 PUFFS/INHALER INH SCH (08:56)
[2021-01-19] MEDS: METOPROLOL TARTRATE 50 MG TAB PO SCH (08:56)
[2021-01-19] MEDS: amLODIPine BESYLATE 5 MG TAB PO SCH (08:56)
[2021-01-19] MEDS: ASPIRIN 81 MG ECTAB PO SCH (08:56)
[2021-01-19] MEDS ORDERED: ENOXAPARIN INJ 40 MG/0.4 ML SYR SQ SCH (09:00)
[2021-01-19] MEDS ORDERED: dexAMETHasone 1 MG TAB PO SCH (09:00)
[2021-01-19] MEDS: LOSARTAN POTASSIUM 25 MG TAB PO SCH (09:55)
--- NOTE | 2021-01-19 15:12 | Discharge Summary ---
Date of Service January 19, 2021 Admission HPI Per Admitting Provider 70-year-old man with history of hypertension, CAD status post CABG in 2009, CKD 3, partial bowel resection for obstruction in 2007 who presents to the ER complaining of cough for the past 2 weeks and 2 syncopal episodes today. Patient reported that he started having symptoms around Easter, 2 weeks ago with cough mostly dry. Associated with loss of voice, anorexia and generalized weakness that has been progressive Reported dizziness especially on standing and some mild headache. This has been progressing and patient had Covid test done 3 days ago by PCP which was positive. Patient reported that he likely got the infection from the son. Patient reported that today, he got up to go use the bathroom and fell with brief loss of consciousness hitting his head on the tile floor. He was not able to get up for some time and his son had to come help him up. His oxygen saturation measured at home was 82 to 83% and his [id number] advised him to go to the hospital. He reported that when EMS arrived he tried to walk to the EMS and had another syncopal episode. Other review of system as detailed below. Admission Exam Per Admitting Provider Constitutional: + well hydrated; no acute distress Eyes: PERRL, conjunctivae normal, anicteric sclerae ENMT: external ear and nose normal, oropharynx normal Respiratory: normal respiratory effort; no respiratory distress mild crackles posteriorly (R>L) On 3 L nasal cannula Cardiovascular: Rate/Rhythm: regular rate and regular rhythm S1-S2 Gastrointestinal (Abdomen): normal bowel sounds, soft, nontender, no hepatosplenomegaly Musculoskeletal: no cyanosis or clubbing, extremities motor strength 5/5 Neurologic: PERRL, EOMI, accommodation nl, no face palsy, no dysarthria No tenderness on palpation left left part of the face where patient fell Psychiatric: A+Ox3, euthymic affect Principal Diagnosis Acute respiratory failure with hypoxia Bronchiectasis COPD with emphysema Pneumonia due to COVID-19 virus Posttussive syncope Discharge Exam CONSTITUTIONAL: WNWD, vitals as above, generally well-appearing EYES: normal conjunctivae, no scleral icterus ENT: external ear and nose normal, MMM RESPIRATORY: clear to auscultation bilaterally, no crackles, rales or wheezes, normal respiratory effort CARDIOVASCULAR: regular rate and rhythm, S1 and 2 heard without murmurs, gallops or rubs, no JVD, no peripheral edema GASTROINTESTINAL: soft, nontender, nondistended, , no guarding MUSCULOSKELETAL: strength 5/5 throughout, head is normocephalic and atraumatic SKIN: warm and dry NEUROLOGIC: CN 2-12 grossly intact, no sensory deficit, normal cognition, normal speech, no tremor PSYCHIATRIC: alert cooperative and oriented to person, place and time. Discharge Data Allergies Allergy/AdvReac Type Severity Reaction Status Date / Time Penicillins Allergy Severe Rash Unverified 01/11/21 16:39 Consultations 01/11/21 18:33 ED Decision to Admit Stat 01/17/21 13:12 Consult Pulmonology Routine Ordered Studies Laboratory Results WBC 8.92 K/uL (4.8-10.8) 01/16/21 09:11 RBC 4.45 M/uL (4.7-6.1) L 01/16/21 09:11 Hgb 14.4 g/dL (14.0-18.0) 01/16/21 09:11 Hct 40.3 % (42-52) L 01/16/21 09:11 MCV 90.6 fL (80-100) 01/16/21 09:11 MCH 32.4 pg (25-34) 01/16/21 09:11 MCHC 35.7 g/dL (32-36) 01/16/21 09:11 RDW Std Deviation 43.6 fL (36.4-46.3) 01/16/21 09:11 RDW Coeff of Bhargav 13.1 % (11.5-14.5) 01/16/21 09:11 Plt Count 341 K/uL (130-400) 01/16/21 09:11 MPV 9.8 fL (7.4-10.4) 01/16/21 09:11 Immature Gran % (Auto) 0.6 % 01/16/21 09:11 Neut % (Auto) 73.9 % 01/16/21 09:11 Lymph % (Auto) 16.8 % 01/16/21 09:11 Rock % (Auto) 7.5 % 01/16/21 09:11 Eos % (Auto) 1.1 % 01/16/21 09:11 Baso % (Auto) 0.1 % 01/16/21 09:11 Neut # (Auto) 6.59 K/uL (1.4-6.5) H 01/16/21 09:11 Lymph # (Auto) 1.50 K/uL (1.2-3.4) 01/16/21 09:11 Rock # (Auto) 0.67 K/uL (0.11-0.59) H 01/16/21 09:11 Eos # (Auto) 0.10 K/uL (0-0.5) 01/16/21 09:11 Baso # (Auto) 0.01 K/uL (0-0.2) 01/16/21 09:11 Immature Gran # (Auto) 0.05 K/uL (0.00-0.02) H 01/16/21 09:11 D-Dimer 990 ug/L FEU (0-500) H* 01/11/21 16:05 Sodium 139 mmol/L (136-145) 01/17/21 06:13 Potassium 3.9 mmol/L (3.5-5.1) 01/17/21 06:13 Chloride 104 mmol/L (98-107) 01/17/21 06:13 Carbon Dioxide 31 mmol/L (21-32) 01/17/21 06:13 Anion Gap 4.0 (3-11) 01/17/21 06:13 BUN 39 mg/dl (7-18) H 01/17/21 06:13 Creatinine 1.19 mg/dl (0.6-1.4) 01/17/21 06:13 Est Cr Clr Drug Dosing 61.0 ml/min 01/17/21 06:13 Est GFR ( Amer) 70.3 01/17/21 06:13 Est GFR (Non-Af Amer) 60.7 01/17/21 06:13 BUN/Creatinine Ratio 33.0 (10-20) H 01/17/21 06:13 Glucose 154 mg/dl (70-99) H 01/17/21 06:13 Calcium 8.8 mg/dl (8.5-10.1) 01/17/21 06:13 Phosphorus 2.2 mg/dl (2.5-4.9) L 01/14/21 13:03 Magnesium 2.1 mg/dl (1.8-2.4) 01/14/21 13:03 Total Bilirubin 0.4 mg/dl (0.2-1) 01/16/21 09:09 AST 29 U/L (15-37) 01/16/21 09:09 ALT 63 U/L (12-78) 01/16/21 09:09 Alkaline Phosphatase 63 U/L (45-117) 01/16/21 09:09 Troponin I < 0.015 ng/ml (0-0.045) 01/11/21 16:05 C-Reactive Protein 1.32 mg/dl (0-0.29) H 01/16/21 09:09 Total Protein 6.1 gm/dl (6.4-8.2) L 01/16/21 09:09 Albumin 2.5 gm/dl (3.4-5.0) L 01/16/21 09:09 Globulin 3.6 gm/dl (2.5-4.0) 01/16/21 09:09 Albumin/Globulin Ratio 0.7 (0.9-2) L 01/16/21 09:09 Procalcitonin < 0.05 ng/ml (0-0.5) 01/14/21 13:03 TSH 0.347 uIu/ml (0.300-4.500) 01/11/21 16:05 Urine Color Dark Yellow 01/12/21 15:57 Urine Appearance Clear (Clear) 01/12/21 15:57 Urine pH 5.5 (4.5-7.5) 01/12/21 15:57 Ur Specific [place] 1.040 (1.000-1.030) H 01/12/21 15:57 Urine Protein 1+ (Negative) H 01/12/21 15:57 Urine Glucose (UA) Negative (Negative) 01/12/21 15:57 Urine Ketones Negative (Negative) 01/12/21 15:57 Urine Blood Negative (Negative) 01/12/21 15:57 Urine Nitrite Negative (Negative) 01/12/21 15:57 Urine Bilirubin Negative (Negative) 01/12/21 15:57 Urine Urobilinogen Negative (Negative) 01/12/21 15:57 Ur Leukocyte Esterase Negative (Negative) 01/12/21 15:57 Urine WBC (Auto) 1-5 /hpf (0-5) 01/12/21 15:57 Urine RBC (Auto) 5-10 /hpf (0-4) H 01/12/21 15:57 U Hyaline Cast (Auto) 5-10 /lpf (0-5) H 01/12/21 15:57 U Epithel Cells (Auto) 10-20 /lpf (0-5) H 01/12/21 15:57 Urine Bacteria (Auto) Negative (Negative) 01/12/21 15:57 COVID-19 Eval Order [facility]FluRsv at [facility] 01/11/21 16:35 SARS-CoV-2 (PCR) POSITIVE (Negative) A* 01/11/21 16:35 Influenza Type A (PCR) Negative (Neg) 01/11/21 16:35 Influenza Type B (PCR) Negative (Neg) 01/11/21 16:35 RSV (RT-PCR) Negative (Neg) 01/11/21 16:[address] 01/11/21 16:20 CT head/brain wo con CLINICAL HISTORY: 70 years-old Male with fall, CHI, +covid. Acute head injury status post fall TECHNIQUE: Multiple axial CT images of the head were obtained without contrast. A dose lowering technique was utilized adhering to the principles of ALARA. COMPARISON: CTA chest of same day FINDINGS: Flower Arranger localizer images demonstrate pulmonary opacities suspicious for pneumonia. No acute intracranial hemorrhage, midline shift, intracranial mass, hydrocephalus, territorial ischemia or abnormal extra-axial collection. It age- related involutional changes. White matter hypodensities suggestive of chronic microvascular ischemic disease. Cerebral vascular calcifications. The calvarium is intact. Mild mucosal thickening of the ethmoid air cells. Unremarkable soft tissues and orbits. IMPRESSION: No acute intracranial abnormality. ACT 112: Negative or not required by law. The above report was generated using voice recognition software. It may contain grammatical, syntax or spelling errors. Electronically signed by: Chris Garcia M.D. 01/11/2021 6:10 PM Chest CTA 01/11/21 16:22 CT angio chest PE protocol CT DOSE: 1431.41 mGy.cm HISTORY: 70 years-old Male with SOB, hypoxia, +covid. Acute shortness of breath and hypoxia. Acute chest trauma status post fall TECHNIQUE: Multiple CTA images of the chest were obtained after the intravenous administration of 113 ml Optiray. Coronal and sagittal MIPS were obtained from the axial data set and were submitted for review. All measurements were obtained according to NASCET criteria. A dose lowering technique was utilized adhering to the principles of ALARA. COMPARISON: Chest radiograph of same day FINDINGS: CTA: Heart is upper limits of normal in size. Prior median sternotomy and CABG with extensive [place] coronary artery calcifications. Mild saccular outpouching of the thoracic aortic isthmus measuring 11 mm suggestive of a ductus diverticulum. No dissection. Unremarkable pulmonary artery. No pulmonary emboli. CT CHEST: 12 mm hypodense left thyroid nodule. Mildly enlarged mediastinal and hilar lymph nodes measure up to 10-11 mm. No pneumothorax. Moderate emphysema. Subpleural multilobar distribution of groundglass and linear consolidative opacities. Bronchial wall thickening suggestive of bronchitis. No overt pulmonary edema or suspicious pulmonary nodule. Central airways are patent. No pneumoperitoneum. Hepatic steatosis. Mild wall thickening of the distal esophagus. Unremarkable soft tissues. There is no acute fracture. IMPRESSION: 1. No pulmonary emboli. 2. Peripheral predominate groundglass and consolidative opacities within all lobes bilaterally compatible with viral pneumonia. 3. Mild likely reactive mediastinal and hilar adenopathy. 4. No pleural effusion. 5. Emphysema. 6. Hepatic steatosis. ACT 112: Negative or not required by law. The above report was generated using voice recognition software. It may contain grammatical, syntax or spelling errors. Electronically signed by: Chris Garcia M.D. 01/11/2021 6:21 PM Chest X-Ray 01/14/21 12:57 XR chest 1V portable HISTORY: Shortness of breath. Pneumonia COMPARISON: Chest CTA 01/11/2021 FINDINGS: No pneumothorax or no pleural effusions. The heart remains mildly enlarged. There are poststernotomy changes. Slight improved aeration within the peripheral groundglass airspace opacities consistent with a multifocal pneumonia. IMPRESSION: Slight improvement in the multifocal pneumonia. ACT 112: Negative or not required by law. Electronically signed by: Bar Sanchez M.D. 01/14/2021 1:57 PM Hospital Course (1) Acute respiratory failure with hypoxia: (2) Pneumonia due to COVID-19 virus: (3) Post-tussive syncope: 70 yo M with hepatic steatosis was admitted to the hospitalist service with evolving acute respiratory failure 2/2 pneumonia. He was started on d ecadron and remdesivir therapies and subsequently improved, with resolution of hypoxia and cough symptoms prior to discharge. He presented with post-tussive syncope and part of his workup included a CT head revealing no acute intracranial abnormalities. He remained hemodynamically stable and afebrile throughout his entire hospital stay. He was discharged in stable condition with close primary care follow-up recommended. Total Time Total Time Spent Total Time Spent (In Minutes): 60 Total Time Includes: Examination of the Patient, Discharge Planning, Medication Reconciliation and Communication With Other Providers Discharge Plan Discharge Items Patient Disposition: Home - Self-Care Reason For Visit: SYNCOPE Discharge Diagnosis: Acute respiratory failure with hypoxia Bronchiectasis COPD with emphysema Pneumonia due to COVID-19 virus Posttussive syncope Condition on Discharge: Good Activity: Resume your previous activity Non-emergency contact: Primary Care Provider Call non-emergency contact if: you have any medication questions, your symptoms worsen, your pain is not controlled and your pain is worsening Follow-up/Referrals: Roque Quinteros MD [Primary Care Provider] - Diet: Carb Consistent or DM2 Addtl Attending Provider Instructions: Please take all medications as instructed on discharge list below. You have been diagnosed with COVID-19 which is a public health risk when you are contagious. Per public health guidelines please stay on home isolation until you are 10 days out from when your symptoms began. Please do not come off isolation if you are still symptomatic. For more information please visit the CDC website at www.cdc.gov, or the Department of Health website for [place]. It is recommended that you have a follow-up chest x-ray in 4 to 6 weeks to ensure complete resolution of your pneumonia. Please follow-up with your primary care provider within 1 week to ensure you are still feeling well after returning home. This appointment will also be a time you can order the chest x-ray and a referral to pulmonology, and or outpatient pulmonary function tests. It was a pleasure taking care of you! Please call if you have any questions or problems. You can reach a [facility] hospitalist on duty at [facility] 24 hours a day by calling [phone]. Take care of yourself. Dinorah Beard, DO [facility] Hospitalist Addtl Milk Tanker Driver Provider Instructions: Please continue new inhaler on a daily basis Please schedule pulmonary function tests and a pulmonary follow-up as outpatient on a nonurgent basis in a month or so. Pending Studies at Discharge: No Stand-Alone Forms: My [facility] Medications and DC Order Prescriptions: New Anoro Ellipta 62.5-25 mcg/actuation Blister With Device 1 ea inhalation DAILY Qty: 60 RF: 0 Continued losartan 50 mg tablet 25 mg PO QAM RF: 0 atorvastatin 80 mg tablet 80 mg PO QPM RF: 0 amlodipine 10 mg tablet 10 mg PO QAM RF: 0 buspirone 10 mg tablet 10 mg PO BID RF: 0 metoprolol tartrate 50 mg tablet 50 mg PO BID RF: 0 sertraline 25 mg tablet 25 mg PO QPM RF: 0 fenofibrate 160 mg tablet 160 mg PO QAM RF: 0 aspirin 81 mg Tablet 81 mg PO DAILY RF: 0 Discharge Orders: Discharge Order (Routine); Ordered 01/19/21 Ordered By: Dinorah Beard Admission Data Admit Date/Time: 01/11/21 19:12 Attending Provider: Dinorah Beard Admit Provider: Brenda Gifford I. Primary Care Provider: Roque Quinteros Other Providers: Josse Schroeder ; Brenda Gifford I. Other Interventions: Discharge Summary Assessment (RN) Last Done: 01/19/21 16:42
== END 2021-01-19 21:19 | disposition home or self-care (01) | DRG 177 ==
LOC: ED 15:48 → 2W 19:12 → SUATTDRO 19:12 → 2W 19:53